=== PATIENT | male | born 1955 | race Caucasian/White ===

== ENCOUNTER → 2016-04-11 | Outpatient (CLI) | payer BC, OTHER ==
--- NOTE | 2016-04-11 21:52 | PN ---
Galdino is doing very well. He is still very compliant with his CPAP therapy and is coming in for a compliancy check. His last evaluation was done here at the sleep center in October of 2013. The patient has lost further weight. He used to weigh 232 and currently he is down to 212. He is still on CPAP pressure of 10 cm of water. He is using a Simplus full-face mask. Note that the patient is also status post UPPP. He has no specific complaints. He is doing extremely well. He is looking for alternative masks, and I offered him the AirFit F10, which he is considering to use, as the level of comfort with this mask was much better compared to the Simplus mask. BP is 141/88, pulse 84, respiration 16, temperature 98.2, saturation 97% on room air. Weight is 218. Height is 5 feet 6 inches. GENERAL APPEARANCE: Calm, comfortable. HEENT: Post UPPP. There is no goiter or neck mass. LUNGS: Clear to auscultation. HEART: Sounds are regular rate and rhythm. Normal S1, S2. ABDOMEN: Soft, nontender. No organomegaly. EXTREMITIES: No edema. No cyanosis or clubbing. IMPRESSION: 1. Obstructive sleep apnea, still under successful therapy with a CPAP pressure of 10 cm of water. 2. Status post UPPP. 3. Moderate degree of periodic limb movements on Mirapex. 4. Hypertension. 5. Obesity with interval weight loss. The patient's BMI is down to 35. PLAN: 1. I offered this patient an AirFit F10 full-face mask. 2. Renew his CPAP supplies. 3. Encourage further weight loss and see me back in a year's time; follow up earlier if needed.
== END | disposition home or self-care (01) ==
LOC: SLEEP 13:28
PROVIDERS: ATTEND Internal Medicine Critical Care Medicine
DX: G47.33 Obstructive sleep apnea (adult) (pediatric) (principal); I10 Essential (primary) hypertension; E66.9 Obesity, unspecified; Z68.35 Body mass index [BMI] 35.0-35.9, adult; Z79.899 Other long term (current) drug therapy

== ENCOUNTER → 2017-01-15 | Outpatient (CLI) | payer BC, OTHER ==
--- NOTE | 2017-01-15 12:14 | US ---
EXAMINATION TYPE: US abdomen complete DATE OF EXAM: 01/15/2017 COMPARISON: NONE CLINICAL HISTORY: RUQ abd pain R10.11. pain and nausea in RUQ, h/o renal stones and splenomegaly EXAM MEASUREMENTS: Liver Length: 15.5 cm Gallbladder Wall: 0.2 cm CBD: 0.5 cm Spleen: 14.5 cm Right Kidney: 11.5 x 5.5 x 6.3 cm Left Kidney: 11.9 x 5.1 x 6.1 cm Large body habitus with overlying gas limits exam Pancreas: limited views due to gas Liver: wnl Gallbladder: fundal and neck fold seen, probable stones seen within fundal fold, no wall thickening, no gutter fluid Evidence for sonographic Galvan's sign: YES CBD: wnl Spleen: enlarged Right Kidney: wnl Left Kidney: 0.8cm inferior pole stone seen Upper IVC: wnl Abd Aorta: limited views due to gas *left message with office to call back @1150, patient waiting until I hear back IMPRESSION: 1. Gallstone. 2. Positive Galvan sign. Consider acute cholecystitis within the differential. Additional suggestive findings for acute cholecystitis however not sonographically apparent.. 3. Inferior pole left renal stone without obstruction
[2017-01-15 12:21] LABS: CH 28.9; CHCM 32.7; HCT 48.2 % (39.0-53.0); HDW 2.89; HGB 15.3 gm/dL (13.0-17.5); MCH 28.3 pg (25.0-35.0); MCHC 31.8 g/dL (31.0-37.0); MCV 88.9 fL (80.0-100.0); Mean Platelet Volume 6.7; RBC 5.42 m/uL (4.30-5.90); RDW 13.7 % (11.5-15.5); WBC 6.7 k/uL (3.8-10.6)
[2017-01-15 12:39] LABS: ALT 36 U/L (21-72); AST 22 U/L (17-59); Alkaline Phosphatase 58 U/L (38-126); Amylase 92 U/L (30-110); Anion Gap 10 mmol/L; Blood Urea Nitrogen 22 mg/dL (9-20); Calcium 9.6 mg/dL (8.4-10.2); Carbon Dioxide 23 mmol/L (22-30); Chloride 108 mmol/L (98-107); Glucose 99 mg/dL (74-99); Non-African American GFR(MDRD) 52 (>60 ml/min/1.73 sqM); Potassium 4.4 mmol/L (3.5-5.1); Sodium 141 mmol/L (137-145); Total Bilirubin 0.5 mg/dL (0.2-1.3); Total Protein 7.1 g/dL (6.3-8.2)
== END | disposition home or self-care (01) ==
LOC: RADUSWWP 11:02
PROVIDERS: ATTEND Family Medicine
DX: K80.20 Calculus of gallbladder without cholecystitis without obstruction (principal); N20.0 Calculus of kidney; I12.9 Hypertensive chronic kidney disease with stage 1 through stage 4 chronic kidney disease, or unspecified chronic kidney disease; N18.3 Chronic kidney disease, stage 3 (moderate); E03.9 Hypothyroidism, unspecified
CPT/HCPCS: 36415; 76700; 80053; 82150; 83690; 84439; 84443; 85027

== ENCOUNTER 2017-05-01 06:37 | Day surgery (SDC) | payer BC, OTHER ==
[2017-04-26 18:01] VITALS: BMI 33.0
[~2017-05-01 06:37] MED LIST: DEXAMETHASONE SOD PHOSPHATE 10 MG/ML 1 ML VIAL IV ONE; LACTATED RINGERS 1,000 ML IV SCH; LIDOCAINE 1% 20 ML VIAL (10MG/ML) FOR IV START INTRADERMA PRN; MIDAZOLAM 2 MG/2 ML VIAL IV PRN; MORPHINE SULFATE 4 MG/ML SYRINGE IVP PRN; ONDANSETRON 4 MG/2 ML VIAL IVP ONE; Pre Op ABX Message 1 EACH MISC MISCELLANE ONE; SCOPOLAMINE 1.5MG/72HR PATCH TRANSDERM ONE
[2017-05-01] MEDS ORDERED: ONDANSETRON 4 MG/2 ML VIAL ONE (07:29)
[2017-05-01] MEDS ORDERED: ceFAZolin 1,000 MG in DEXTROSE/WATER 1 50ML.BAG IVPB STA (07:52)
[2017-05-01] MEDS ORDERED: LIDOCAINE 1% INJ 10MG/ML (20 ML MDV) ONE (07:59)
[2017-05-01] MEDS ORDERED: GLYCOPYRROLATE 0.2 MG/ML 2 ML VIAL ONE (07:59)
[2017-05-01] MEDS ORDERED: LIDOCAINE 2% INJ 20 MG/ML (20 ML MDV) ONE (07:59)
[2017-05-01] MEDS ORDERED: PHENYLEPHRINE-0.9% NACL SYG 1 MG/10 ML SYRINGE ONE (07:59)
[2017-05-01] MEDS ORDERED: NEOSTIGMINE 1 MG/ML 10 ML VIAL ONE (07:59)
[2017-05-01] MEDS ORDERED: PROPOFOL 10 MG/ML 20 ML VIAL IV ONE (07:59)
[2017-05-01] MEDS ORDERED: ROCURONIUM BROMIDE 10 MG/ML 10 ML VIAL IV ONE (07:59)
[2017-05-01] MEDS ORDERED: MIDAZOLAM 2 MG/2 ML VIAL ONE (07:59)
[2017-05-01] MEDS ORDERED: ROPIVACAINE 5 MG/ML 30 ML VIAL ONE (07:59)
[2017-05-01] MEDS ORDERED: SUCCINYLCHOLINE CHLORIDE 100 MG/5 ML SYR IV ONE (07:59)
[2017-05-01] MEDS ORDERED: LACTATED RINGERS 1,000 ML IV ONE ×2 (07:59→09:16)
[2017-05-01] MEDS ORDERED: ePHEDrine SULFATE/0.9% NACL/PF 50 MG/5 ML SYRINGE IV ONE (07:59)
--- NOTE | 2017-05-01 08:24 | P.ONQ ---
Anesthesiology Proc Note - PNB - Peripheral Nerve Block Performed Right Interscalene Single Time Out Performed: Yes Procedure Start Time: 07:32 Procedure Stop Time: 07:44 Indication: Acute Post-Operative Pain, Requested by physician Sedation Type: Sedate with meaningful contact maintained Preparation: Sterile Prep Position: Supine Catheter: None Needle Types: Facet Needle Size: 50mm (2") Needle Gauge: 20 Technique: Ultrasound Injectate: 0.5% Ropivacaine (see comment for volume) (15 mls Ropi 0.5% + 15 mls Lidocaine 2%) Adjunct: Epinephrine (see comment for dilution ratio) Blood Aspirated: No Pain Paresthesia on Injection Noted: No Resistance on Injection: Normal Events: Uneventful and Well Tolerated
[2017-05-01] MEDS ORDERED: ceFAZolin 1,000 MG in SODIUM CHLORIDE 0.9% 1,000 ML IRRIGATION ONE (08:32)
[2017-05-01] MEDS ORDERED: MORPHINE SULFATE 4 MG/ML SYRINGE IVP PRN ×3 (09:40)
[2017-05-01] MEDS ORDERED: hydrOXYzine PAMOATE 25 MG CAP PO PRN (09:40)
[2017-05-01] MEDS ORDERED: SENNOSIDES-DOCUSATE SODIUM 1 EACH TAB PO PRN (09:40)
[2017-05-01] MEDS ORDERED: ONDANSETRON 4 MG/2 ML VIAL IVP PRN (09:40)
[2017-05-01] MEDS ORDERED: HYDROcodone/APAP 5-325MG 1 EACH TAB PO PRN (09:40)
[2017-05-01] MEDS ORDERED: TEMAZEPAM 15 MG CAP PO PRN (09:40)
[2017-05-01] MEDS: ceFAZolin IN SWFI 2 GM/20 ML SYRINGE IVP SCH ×2 (17:35→23:35)
[2017-05-01] MEDS: LACTATED RINGERS 1,000 ML IV SCH ×2 (17:35→23:35)
[2017-05-01] MEDS: HYDROcodone/APAP 5-325MG 1 EACH TAB PO PRN (18:36)
[2017-05-01] MEDS: DOXAZOSIN 2 MG TAB PO SCH (19:44)
[2017-05-01] MEDS: TOPIRAMATE 25 MG TAB PO SCH (19:45)
[2017-05-01] MEDS ORDERED: CYCLOBENZAPRINE 10 MG TAB PO SCH (21:00)
[2017-05-01] MEDS ORDERED: PRIMIDONE 50 MG TAB PO SCH (21:00)
[2017-05-01] MEDS ORDERED: PANTOPRAZOLE 40 MG TABLET PO SCH (21:00)
[2017-05-01] MEDS ORDERED: MIRTAZAPINE 15 MG TAB PO SCH (21:00)
[2017-05-01] MEDS ORDERED: SERTRALINE 100 MG TAB PO SCH (21:00)
--- NOTE | 2017-05-01 23:36 | CONS ---
CONSULTATION DATE OF CONSULTATION: 05/01/2017 REASON FOR CONSULTATION: Medical management requested by Dr. Toledo. CONSULTATION: This is a pleasant 61-year-old patient of Dr. May who has undergone right shoulder surgery. Right shoulder is in a support. Pain is controlled. No nausea, vomiting. Chronic stable medical conditions include asthma, GERD, hypertension, restless leg syndrome. The patient did tolerate his supper. No chest pain or short of breath. REVIEW OF SYSTEMS: CONSTITUTIONAL: None. HEENT: None. RESPIRATORY: None. CARDIOVASCULAR: None. GASTROINTESTINAL: Heartburn. GENITOURINARY: None. MUSCULOSKELETAL: The patient had pain prior to operation on the right shoulder. DERMATOLOGICAL: None. HEMATOLOGIC: None. LYMPHATIC: None. PSYCHIATRY: None. NEUROLOGICAL: Restless legs syndrome. PAST MEDICAL HISTORY: Asthma, GERD, hypertension, obstructive sleep apnea, does not use CPAP anymore after losing weight, restless leg syndrome. PAST SURGICAL HISTORY: Back surgery, cholecystectomy, hernia repair, right hand foreign body removed, nerve decompression of the right face, spinal fusion x3, cholecystectomy, hernia repair. SOCIAL HISTORY: Does not smoke or drink alcohol, . FAMILY HISTORY: Reviewed with patient. History of cancer, type unknown. HOME MEDICATIONS: 1. Topamax ER 50 mg q.h.s. 2. Zoloft 400 mg q.h.s. 3. Mysoline 50 mg q.h.s. 4. Protonix 20 mg q.h.s. 5. Remeron 50 mg p.o. q.h.s. 6. Synthroid 75 mcg p.o. daily. 7. Cardura XL 4 mg q.h.s. 8. Cyclobenzaprine 10 mg q.h.s. 9. Fioricet 1-2 tablets every 6 hours p.r.n. 10.Senokot-S 2 tablets p.o. daily. 11.[place] 5, 1-2 tablets q.4 p.r.n. ALLERGIES: To MEPERIDINE and SILVADENE. PHYSICAL EXAMINATION: Temperature 98.2 pulse 95, respirations 18, blood pressure 159/104, pulse ox 95% on room air. GENERAL APPEARANCE: Well built, BMI 33.1, sitting up, comfortable. EYES: Pupils equal. Conjunctivae normal. HEENT: External nose and ears normal. Oral cavity normal. NECK: JVD not raised. Mass not palpable. RESPIRATORY: Effort normal. Lungs are clear. CARDIOVASCULAR: First and second sounds normal. No edema. ABDOMEN: Soft nontender. Liver, spleen not palpable. LYMPHATIC: No lymph node palpable in neck or axillae. PSYCHIATRY: Alert and oriented x3. Mood and affect normal. EXTREMITIES: Right arm in a support. The patient has good sensation in the fingers. INVESTIGATIONS: No blood work from today. ASSESSMENT: 1. Right shoulder rotator cuff repair with acromioplasty and excision of distal clavicle. 2. Intermittent asthma, controlled. 3. Gastroesophageal reflux disease. 4. Essential hypertension. 5. Restless legs syndrome. 6. Hypothyroidism. 7. Depression not otherwise specified, controlled. PLAN: Home medications resumed. The patient has Venodyne boots for DVT prophylaxis. Pain is well-controlled. The patient when discharged should follow up with Dr. May. Thank you, Dr. Toledo. MMARLINE / THADDEUS: [id number] /
[2017-05-02] MEDS: HYDROcodone/APAP 5-325MG 1 EACH TAB PO PRN ×2 (02:16→11:19)
[2017-05-02] MEDS ORDERED: LEVOTHYROXINE 75 MCG TAB PO SCH (06:30)
[2017-05-02 07:34] VITALS: BP 157/86; PULSE 73; RESP 16; TEMP 98.5
--- NOTE | 2017-05-02 08:39 | P.DS ---
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 The patient presented to the orthopedic office for evaluation. After discussion and consideration patient elects to proceed with a rotator cuff repair. The patient is seen preoperatively by his primary care physician and cleared for surgery. Patient is admitted to observation at [facility] on 05/01/2017 for right shoulder rotator cuff repair with distal clavicle excision and acromioplasty. The procedures performed without complication or sequelae. The patient is doing well postoperatively. Labs and vital signs are stable on day of discharge. On day of discharge patient's shoulder incision is healing well. There is minimal erythema. There is no drainage noted at this time. There is minimal soft tissue swelling to the right upper extremity. Patient has full hand, wrist , and elbow motion without difficulty or pain. Neurovascular status to the right upper extremity is intact. Patient is discharged to home in good condition. Patient Condition at Discharge: Stable Plan - Discharge Summary Discharge Rx Participant: Yes New Discharge Prescriptions: New Cephalexin [Keflex] 500 mg PO Q8HR #15 cap HYDROcodone/APAP 5-325MG [[place] 5] 1 - 2 each PO Q4-6H PRN #60 tab PRN Reason: Pain Sennosides-Docusate Sodium [Senokot-S] 2 tab PO DAILY #30 tablet No Action Topiramate [Topiramate ER] 50 mg PO HS Doxazosin Mesylate [Cardura Xl] 4 mg PO HS Sertraline HCl [Zoloft] 200 mg PO HS Pantoprazole Sodium 20 mg PO HS Butalb/APAP/Caff 50-325-40Mg [Fioricet 50-325-40] 1 - 2 tab PO Q6H PRN PRN Reason: Migraine Headache Cyclobenzaprine HCl 10 mg PO HS Levothyroxine Sodium [Synthroid] 75 mcg PO DAILY Mirtazapine [Remeron] 15 mg PO HS Primidone [Mysoline] 50 mg PO HS Discharge Medication List Doxazosin Mesylate [Cardura Xl] 4 mg PO HS 03/29/15 [History] Pantoprazole Sodium 20 mg PO HS 03/29/15 [History] Sertraline HCl [Zoloft] 200 mg PO HS 03/29/15 [History] Topiramate [Topiramate ER] 50 mg PO HS 03/29/15 [History] Butalb/APAP/Caff 50-325-40Mg [Fioricet 50-325-40] 1 - 2 tab PO Q6H PRN 04/26/17 [History] Cyclobenzaprine HCl 10 mg PO HS 04/26/17 [History] Levothyroxine Sodium [Synthroid] 75 mcg PO DAILY 04/26/17 [History] Mirtazapine [Remeron] 15 mg PO HS 04/26/17 [History] Primidone [Mysoline] 50 mg PO HS 04/26/17 [History] Cephalexin [Keflex] 500 mg PO Q8HR #15 cap 05/01/17 [Rx] HYDROcodone/APAP 5-325MG [[place] 5] 1 - 2 each PO Q4-6H PRN #60 tab 05/01/17 [Rx] Sennosides-Docusate Sodium [Senokot-S] 2 tab PO DAILY #30 tablet 05/01/17 [Rx] Follow up Appointment(s)/Referral(s): Ilya Toledo DO [Doctor of Osteopathic Medicine] - 2 Weeks Activity/Diet/Wound Care/Special Instructions: Keep incision clean and dry Change dressing daily May shower in 3 days if no drainage from incision Keep arm sling/abductor pillow in place except when bathing Follow up with Dr. Toledo in 2 weeks. Call [facility] with any questions or concerns. [phone] Discharge Disposition: HOME SELF-CARE
[2017-05-02] MEDS: TOPIRAMATE 25 MG TAB PO SCH (08:46)
[2017-05-02] MEDS: DOXAZOSIN 2 MG TAB PO SCH (08:46)
--- NOTE | 2017-05-02 22:38 | PN ---
PROGRESS NOTE DATE OF SERVICE: 05/02/2017. PRESENTING COMPLAINT: Shoulder surgery. INTERVAL HISTORY: Patient is status post right shoulder surgery. Pain is better controlled. Sitting up. Did tolerate his breakfast. No nausea or vomiting. Up to the bathroom. is present. REVIEW OF SYSTEMS: Done for constitutional, cardiovascular, GI, pulmonary, musculoskeletal; relevant findings as above. CURRENT MEDICATIONS: Reviewed. EXAMINATION: VITAL SIGNS: Temperature 98.5, pulse 93, respirations 16, blood pressure 157/86 pulse ox 97% on room air. GENERAL APPEARANCE: Sitting up, comfortable. EYES: Pupils are equal. Conjunctivae normal. HEENT: External appearance of ears and nose normal. Oral cavity normal. NECK: JVD not raised. Mass not palpable. Respiratory effort normal. LUNGS: Clear. CARDIOVASCULAR: 1st and 2nd sounds normal. No edema. ABDOMEN: Soft, nontender. Liver and spleen not palpable. PSYCHIATRY: Alert and oriented. Mood normal. Right arm in support. Fingers have good sensation. ASSESSMENT: 1. Right shoulder rotator cuff repair with acromioplasty and excision of distal clavicle. 2. Intermittent asthma, controlled. 3. Gastroesophageal reflux disease. 4. Essential hypertension. 5. Restless legs syndrome. 6. Hypothyroidism. 7. Depression, not otherwise specified. PLAN: Patient doing well. Continue current medication and treatment plan. MMODL / IJN: [id number] /
--- NOTE | 2017-05-03 11:24 | OP ---
OPERATIVE REPORT DATE OF PROCEDURE: 05/01/2017. SURGEON: Ilya Toledo DO. PROPERTY FIELD ADJUSTER: VERN Ruiz. PREOPERATIVE DIAGNOSIS: Torn right rotator cuff. POSTOPERATIVE DIAGNOSIS: Torn right rotator cuff. PROCEDURE PERFORMED: Resection of distal right clavicle, decompression acromioplasty, and rotator cuff repair utilizing Arthrex bioabsorbable suture and anchor. DESCRIPTION OF PROCEDURE: The patient was taken taken to the operative suite and placed in supine position. Regional block anesthesia was performed by the department of anesthesiology and Patient was placed in beach chair position, appropriately being padded and secured. Betadine prep was carried out over the right shoulder. Sterile drapes were applied in the usual manner. A minimally invasive anterior lateral incision was developed over the acromion. Sharp dissection through subcutaneous tissue was performed. The superior acromioclavicular ligament was identified and dissected. The distal 1 cm of the clavicle was excised with a bone saw. The anterior deltoid was then released along the anterior lateral border. The coracoacromial ligament was elevated. A anterior lateral decompression acromioplasty was performed. The acromion was shaped with a bone saw and bone rasp. Direct visualization and inspection revealed a complete full thickness tear at the supraspinatus area of the right shoulder. There was mild retraction present at this time. The tuberosity was prepared using rongeur and bone awl and tap a 5.5 bioabsorbable anchor was then . Following that securement in bone, the repair was then carried out for the rotator cuff. Irrigation was performed. The deltoid was then reapproximated back in to the acromion with #1 Ethibond suture. The deep fascia was approximated with #1 Vicryl interrupted fashion. The skin was approximated with 3-0 Quill suture in subcuticular fashion. The incision was sealed with Dermabond. A sterile dressing was applied and patient placed in pillow splint and transferred to recovery room in satisfactory postop condition. GROSS PATHOLOGY: A complete tear of the supraspinatus tendon. MMODL / IJN: [id number] /
== END 2017-05-02 11:55 | disposition home or self-care (01) ==
LOC: OR 06:37 → 3SUR 09:31 → OR 05-02 11:55
PROVIDERS: ATTEND Orthopaedic Surgery
DX: M75.121 Complete rotator cuff tear or rupture of right shoulder, not specified as traumatic (principal); M75.41 Impingement syndrome of right shoulder; M19.011 Primary osteoarthritis, right shoulder; J45.909 Unspecified asthma, uncomplicated; K21.9 Gastro-esophageal reflux disease without esophagitis; G25.81 Restless legs syndrome; E03.9 Hypothyroidism, unspecified; F32.9 Major depressive disorder, single episode, unspecified; I10 Essential (primary) hypertension; I73.9 Peripheral vascular disease, unspecified; G47.33 Obstructive sleep apnea (adult) (pediatric); G43.909 Migraine, unspecified, not intractable, without status migrainosus; M54.2 Cervicalgia; N40.0 Benign prostatic hyperplasia without lower urinary tract symptoms; E78.5 Hyperlipidemia, unspecified; Z98.1 Arthrodesis status; N28.9 Disorder of kidney and ureter, unspecified; E66.9 Obesity, unspecified; Z68.33 Body mass index [BMI] 33.0-33.9, adult; Z86.718 Personal history of other venous thrombosis and embolism; Z79.890 Hormone replacement therapy; Z79.891 Long term (current) use of opiate analgesic; Z79.899 Other long term (current) drug therapy; Z79.51 Long term (current) use of inhaled steroids; Z88.5 Allergy status to narcotic agent; Z88.1 Allergy status to other antibiotic agents
CPT/HCPCS: 64415

== ENCOUNTER 2018-01-26 20:44 | Emergency (ER) | payer BC, OTHER ==
[2018-01-26] MEDS ORDERED: ONDANSETRON 4 MG/2 ML VIAL IVP STA (21:28)
[2018-01-26] MEDS ORDERED: SODIUM CHLORIDE 0.9% 1,000 ML IV STA (21:28)
--- NOTE | 2018-01-26 21:31 | ED ---
General Adult HPI - General Chief complaint: Nausea/Vomiting/Diarrhea Stated complaint: Vomiting Time Seen by Provider: 01/26/18 21:04 Source: patient, RN notes reviewed, old records reviewed Mode of arrival: ambulatory Limitations: no limitations - History of Present Illness Initial comments: 62-year-old male presenting for evaluation of nausea vomiting diarrhea. Patient has had 3 day history of nausea vomiting, states she's vomited nearly every hour over the past 12 hours. He is also had profound diarrhea which she describes as watery and dark. 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 He has been unable to tolerate anything orally. Patient also complains of generalized abdominal pain which is crampy in nature. No chest pain. No dyspnea. No fever or chills. Patient was prescribed metronidazole for C. difficile by his primary care physician. States this episode is similar to previous episodes of C. difficile diarrhea. - Related Data Home Medications Medication Instructions Recorded Confirmed Doxazosin Mesylate [Cardura Xl] 4 mg PO HS 03/29/15 05/01/17 Pantoprazole Sodium 20 mg PO HS 03/29/15 05/01/17 Sertraline HCl [Zoloft] 200 mg PO HS 03/29/15 05/01/17 Topiramate [Topiramate ER] 50 mg PO HS 03/29/15 05/01/17 Butalb/APAP/Caff 50-325-40Mg 1 - 2 tab PO Q6H PRN 04/26/17 05/01/17 [Fioricet 50-325-40] Cyclobenzaprine HCl 10 mg PO HS 04/26/17 05/01/17 Levothyroxine Sodium [Synthroid] 75 mcg PO DAILY 04/26/17 05/01/17 Mirtazapine [Remeron] 15 mg PO HS 04/26/17 05/01/17 Primidone [Mysoline] 50 mg PO HS 04/26/17 05/01/17 Previous Rx's Medication Instructions Recorded Cephalexin [Keflex] 500 mg PO Q8HR #15 cap 05/01/17 HYDROcodone/APAP 5-325MG [[place] 5] 1 - 2 each PO Q4-6H PRN #60 tab 05/01/17 Sennosides-Docusate Sodium 2 tab PO DAILY #30 tablet 05/01/17 [Senokot-S] Allergies Allergy/AdvReac Type Severity Reaction Status Date / Time meperidine HCl [From Demerol] Allergy Rash/Hives Verified 01/26/18 20:49 silver sulfadiazine Allergy Itching, Verified 01/26/18 20:49 [From Silvadene] KIM SKIN Review of Systems ROS Statement: Those systems with pertinent positive or pertinent negative responses have been documented in the HPI. ROS Other: All systems not noted in ROS Statement are negative. Past Medical History Past Medical History: Asthma, GERD/Reflux, GI Bleed, Hypertension, Musculoskeletal Disorder, Pulmonary Embolus (PE), Sleep Apnea/CPAP/BIPAP, Thyroid Disorder Additional Past Medical History / Comment(s): RT SHOULDER INJURY. RLS. NO LONGER USING CPAP SINCE WGT LOSS 01/2017. DR WHEELER HAS REFERRED PATIENT TO SEE CARDIAC DR 04/27/17 FOR PRE-OP CLEARANCE, PER . History of Any Multi-Drug Resistant Organisms: C-DIFF Date of last positivie culture/infection: 04/2016 MDRO Source:: STOOL Past Surgical History: Back Surgery, Cholecystectomy, Hernia Repair, Orthopedic Surgery Additional Past Surgical History / Comment(s): Sinus. UPPP. RT HAND FB REMOVAL. Nerve decompression RT WAIST. SPINAL FUSION X3. GB REMOVAL, HERNIA REPAIR 01/2017. Past Anesthesia/Blood Transfusion Reactions: Previous Problems w/ Anesthesia, Motion Sickness, Postoperative Nausea & Vomiting (PONV) Additional Past Anesthesia/Blood Transfusion Reaction / Comment(s): AWAKES W/ BEING UNABLE TO BREATHE; DRY HEAVES SEVERE, NO RX HELPED. Past Psychological History: No Psychological Hx Reported Smoking Status: Never smoker Past Alcohol Use History: None Reported Past Drug Use History: None Reported - Past Family History Sister(s) Family Medical History: Cancer General Exam Limitations: no limitations General appearance: alert, in no apparent distress Head exam: Present: atraumatic, normocephalic Eye exam: Present: normal appearance, PERRL ENT exam: Present: mucous membranes dry Neck exam: Present: normal inspection. Absent: tenderness, meningismus Respiratory exam: Present: normal lung sounds bilaterally. Absent: respiratory distress, wheezes Cardiovascular Exam: Present: regular rate, normal rhythm GI/Abdominal exam: Present: soft, distended. Absent: tenderness, guarding, rebound Extremities exam: Present: normal inspection, normal capillary refill. Absent: pedal edema Neurological exam: Present: alert, oriented X3, CN II-XII intact. Absent: motor sensory deficit Psychiatric exam: Present: normal affect, normal mood Skin exam: Present: warm, dry, intact. Absent: cyanosis, diaphoretic Course Vital Signs 01/26/18 01/26/18 20:45 22:29 Temperature 98.4 F Pulse Rate 80 73 Respiratory 20 18 Rate Blood Pressure 173/104 139/94 O2 Sat by Pulse 99 96 Oximetry Medical Decision Making - Medical Decision Making 62-year-old male history of C. diff presenting with nausea vomiting and diarrhea. Symptoms have been present for the past 3 days. He was started on metronidazole by his primary care physician. On exam patient is well-appearing with stable vitals. No episodes of vomiting or diarrhea while in the emergency department. Patient has normal CBC no leukocytosis, stable hemoglobin, normal electrolytes. Patient does have 1+ ketones in the urine consistent with some dehydration. He is given IV hydration and Zofran. X-rays obtained which is overall negative, no obstruction. On reevaluation, patient is feeling better, no vomiting. Nausea improved. Patient states he does have Zofran at home. - Lab Data Result diagrams: 01/26/18 21:50 01/26/18 21:50 Lab Results 01/26/18 01/26/18 01/26/18 Range/Units 21:50 21:50 21:50 WBC 8.1 (3.8-10.6) k/uL RBC 5.91 H (4.30-5.90) m/uL Hgb 16.9 (13.0-17.5) gm/dL Hct 52.9 (39.0-53.0) % MCV 89.5 (80.0-100.0) fL MCH 28.6 (25.0-35.0) pg MCHC 32.0 (31.0-37.0) g/dL RDW 13.5 (11.5-15.5) % Plt Count 315 (150-450) k/uL Neutrophils % 77 % Lymphocytes % 17 % Monocytes % 4 % Eosinophils % 1 % Basophils % 0 % Neutrophils # 6.2 (1.3-7.7) k/uL Lymphocytes # 1.4 (1.0-4.8) k/uL Monocytes # 0.3 (0-1.0) k/uL Eosinophils # 0.1 (0-0.7) k/uL Basophils # 0.0 (0-0.2) k/uL PT (9.0-12.0) sec INR (<1.2) APTT (22.0-30.0) sec Sodium 142 (137-145) mmol/L Potassium 4.4 (3.5-5.1) mmol/L Chloride 106 (98-107) mmol/L Carbon Dioxide 25 (22-30) mmol/L Anion Gap 11 mmol/L BUN 14 (9-20) mg/dL Creatinine 1.04 (0.66-1.25) mg/dL Est GFR (CKD-EPI)AfAm 89 (>60 ml/min/1.73 sqM) Est GFR (CKD-EPI)NonAf 77 (>60 ml/min/1.73 sqM) Glucose 109 H (74-99) mg/dL Plasma Lactic Acid Torres (0.7-2.0) mmol/L Calcium 10.1 (8.4-10.2) mg/dL Total Bilirubin 0.7 (0.2-1.3) mg/dL AST 20 (17-59) U/L ALT 25 (21-72) U/L Alkaline Phosphatase 70 (38-126) U/L Total Protein 7.9 (6.3-8.2) g/dL Albumin 4.8 (3.5-5.0) g/dL Amylase 81 (30-110) U/L Lipase 98 (23-300) U/L Urine Color Yellow Urine Appearance Clear (Clear) Urine pH 5.5 (5.0-8.0) Ur Specific [place] 1.023 (1.001-1.035) Urine Protein Trace H (Negative) Urine Glucose (UA) Negative (Negative) Urine Ketones 1+ H (Negative) Urine Blood Trace H (Negative) Urine Nitrite Negative (Negative) Urine Bilirubin Negative (Negative) Urine Urobilinogen 2.0 (<2.0) mg/dL Ur Leukocyte Esterase Negative (Negative) Urine RBC 3 (0-5) /hpf Urine WBC 3 (0-5) /hpf Ur Squamous Epith Cells <1 (0-4) /hpf Urine Mucus Moderate H (None) /hpf 01/26/18 01/26/18 Range/Units 21:50 21:50 WBC (3.8-10.6) k/uL RBC (4.30-5.90) m/uL Hgb (13.0-17.5) gm/dL Hct (39.0-53.0) % MCV (80.0-100.0) fL MCH (25.0-35.0) pg MCHC (31.0-37.0) g/dL RDW (11.5-15.5) % Plt Count (150-450) k/uL Neutrophils % % Lymphocytes % % Monocytes % % Eosinophils % % Basophils % % Neutrophils # (1.3-7.7) k/uL Lymphocytes # (1.0-4.8) k/uL Monocytes # (0-1.0) k/uL Eosinophils # (0-0.7) k/uL Basophils # (0-0.2) k/uL PT 11.0 (9.0-12.0) sec INR 1.0 (<1.2) APTT 25.0 (22.0-30.0) sec Sodium (137-145) mmol/L Potassium (3.5-5.1) mmol/L Chloride (98-107) mmol/L Carbon Dioxide (22-30) mmol/L Anion Gap mmol/L BUN (9-20) mg/dL Creatinine (0.66-1.25) mg/dL Est GFR (CKD-EPI)AfAm (>60 ml/min/1.73 sqM) Est GFR (CKD-EPI)NonAf (>60 ml/min/1.73 sqM) Glucose (74-99) mg/dL Plasma Lactic Acid Torres 1.1 (0.7-2.0) mmol/L Calcium (8.4-10.2) mg/dL Total Bilirubin (0.2-1.3) mg/dL AST (17-59) U/L ALT (21-72) U/L Alkaline Phosphatase (38-126) U/L Total Protein (6.3-8.2) g/dL Albumin (3.5-5.0) g/dL Amylase (30-110) U/L Lipase (23-300) U/L Urine Color Urine Appearance (Clear) Urine pH (5.0-8.0) Ur Specific [place] (1.001-1.035) Urine Protein (Negative) Urine Glucose (UA) (Negative) Urine Ketones (Negative) Urine Blood (Negative) Urine Nitrite (Negative) Urine Bilirubin (Negative) Urine Urobilinogen (<2.0) mg/dL Ur Leukocyte Esterase (Negative) Urine RBC (0-5) /hpf Urine WBC (0-5) /hpf Ur Squamous Epith Cells (0-4) /hpf Urine Mucus (None) /hpf Disposition Clinical Impression: Dehydration, Nausea vomiting and diarrhea Disposition: HOME SELF-CARE Condition: Good Instructions: Acute Nausea and Vomiting (ED), Acute Diarrhea (ED) Is patient prescribed a controlled substance at d/c from ED?: No Referrals: Davy Wheeler DO [Primary Care Provider] - 1-2 days Time of Disposition: 22:56
--- NOTE | 2018-01-26 22:05 | XR ---
EXAMINATION TYPE: XR KUB DATE OF EXAM: 01/26/2018 COMPARISON: 03/29/2015 HISTORY: Vomiting TECHNIQUE: 2 views upright FINDINGS: There is no sign of intestinal obstruction or pneumoperitoneum. Fecal pattern is normal. Th ere is 7 mm calcification in the lower pole left kidney. There is additional smaller calculus. IMPRESSION: Left renal calculi. Nonacute abdomen. No change.
[2018-01-26 22:08] LABS: MCH 28.6 pg (25.0-35.0); MCV 89.5 fL (80.0-100.0)
[2018-01-26 22:09] LABS: Appearance,Urine Clear (Clear); Bilirubin,Urine Negative (Negative); Blood,Urine Trace (Negative); Color,Urine Yellow; Glucose,Urine (UA) Negative (Negative); Ketones,Urine 1+ (Negative); Leukocyte Esterase,Urine Negative (Negative); Mucus,Urine Moderate /hpf; Nitrite,Urine Negative (Negative); PH, Urine 5.5 (5.0-8.0); Protein,Urine Trace (Negative); RBC,Urine 3 /hpf (0-5); Specific Gravity,Urine 1.023 (1.001-1.035); Squamous Epithelial Cell,Urine <1 /hpf (0-4); WBC,Urine 3 /hpf (0-5)
[2018-01-26 22:24] LABS: Basophils % (A) 0 %; Eosinophils # (A) 0.1 k/uL (0-0.7); Eosinophils % (A) 1 %; HCT 52.9 % (39.0-53.0); HGB 16.9 gm/dL (13.0-17.5); Lymphocytes # (A) 1.4 k/uL (1.0-4.8); Lymphocytes % (A) 17 %; Mean Platelet Volume 6.8; Monocytes # (A) 0.3 k/uL (0-1.0); Monocytes % (A) 4 %; Neutrophils # (A) 6.2 k/uL (1.3-7.7); Neutrophils % (A) 77 %; Platelet Count 315 k/uL (150-450); RBC 5.91 m/uL (4.30-5.90); RDW 13.5 % (11.5-15.5); WBC 8.1 k/uL (3.8-10.6)
[2018-01-26 22:28] LABS: Albumin 4.8 g/dL (3.5-5.0); Calcium 10.1 mg/dL (8.4-10.2); Potassium 4.4 mmol/L (3.5-5.1); Total Bilirubin 0.7 mg/dL (0.2-1.3); Total Protein 7.9 g/dL (6.3-8.2)
[2018-01-26] MEDS ORDERED: SODIUM CHLORIDE 0.9% 500 ML 500 ML IV ONE (22:30)
[2018-01-27 00:15] VITALS: BP 153/93; PULSE 79; RESP 16; TEMP 98
== END 2018-01-27 00:15 | disposition home or self-care (01) ==
LOC: EC 20:44
DX: E86.0 Dehydration (principal); R11.2 Nausea with vomiting, unspecified; R19.7 Diarrhea, unspecified; J45.909 Unspecified asthma, uncomplicated; K21.9 Gastro-esophageal reflux disease without esophagitis; I10 Essential (primary) hypertension; G47.30 Sleep apnea, unspecified; Z79.899 Other long term (current) drug therapy; Z86.711 Personal history of pulmonary embolism; Z90.49 Acquired absence of other specified parts of digestive tract
CPT/HCPCS: 36415; 80053; 82150; 83605; 83690; 85025; 85610; 85730; 81001; 74018; 99284; 96374; 96361 ×2; J2405

== ENCOUNTER 2018-01-27 18:30 | Observation (INO) | payer BC, OTHER ==
[2018-01-27] MEDS ORDERED: ONDANSETRON 4 MG/2 ML VIAL IVP STA (18:54)
[2018-01-27] MEDS ORDERED: SODIUM CHLORIDE 0.9% 1,000 ML IV STA (18:54)
--- NOTE | 2018-01-27 18:56 | ED ---
Nausea/Vomiting/Diarrhea HPI - General Chief complaint: Nausea/Vomiting/Diarrhea Stated complaint: Vomiting Time Seen by Provider: 01/27/18 18:53 Source: patient, RN notes reviewed, old records reviewed Mode of arrival: ambulatory Limitations: no limitations - History of Present Illness Initial comments: This is a 62-year-old male the ER for evaluation. This patient presents today for evaluation regards to nausea vomiting diarrhea back pain. Patient states he has a history of C. diff, patient was in the hospital last night for similar complaints. Feel better prior to discharge place have persistent pain throughout the day tonight. Pain with nausea vomiting and now mild abdominal pain. No fevers. No recent travel history no sick contacts. No blood MD complaint: nausea, vomiting, diarrhea, abdominal pain -: days(s) (3) Description of Vomiting: food contents, watery, bilious Description of Diarrhea: other (None noted) Associated Abdominal Pain: Yes Location: epigastric Radiation: none Severity: severe (Vomiting and pain) Severity scale (1-10): 10 Quality: aching Consistency: constant Improves with: none Worsens with: vomiting, movement Associated Symptoms: myalgias, nausea/vomiting, weakness - Related Data Home Medications Medication Instructions Recorded Confirmed Doxazosin Mesylate [Cardura Xl] 4 mg PO HS 03/29/15 05/01/17 Pantoprazole Sodium 20 mg PO HS 03/29/15 05/01/17 Sertraline HCl [Zoloft] 200 mg PO HS 03/29/15 05/01/17 Topiramate [Topiramate ER] 50 mg PO HS 03/29/15 05/01/17 Butalb/APAP/Caff 50-325-40Mg 1 - 2 tab PO Q6H PRN 04/26/17 05/01/17 [Fioricet 50-325-40] Cyclobenzaprine HCl 10 mg PO HS 04/26/17 05/01/17 Levothyroxine Sodium [Synthroid] 75 mcg PO DAILY 04/26/17 05/01/17 Mirtazapine [Remeron] 15 mg PO HS 04/26/17 05/01/17 Primidone [Mysoline] 50 mg PO HS 04/26/17 05/01/17 Previous Rx's Medication Instructions Recorded Cephalexin [Keflex] 500 mg PO Q8HR #15 cap 05/01/17 HYDROcodone/APAP 5-325MG [[place] 5] 1 - 2 each PO Q4-6H PRN #60 tab 05/01/17 Sennosides-Docusate Sodium 2 tab PO DAILY #30 tablet 05/01/17 [Senokot-S] Allergies Allergy/AdvReac Type Severity Reaction Status Date / Time meperidine HCl [From Demerol] Allergy Rash/Hives Verified 01/27/18 18:49 silver sulfadiazine Allergy Itching, Verified 01/27/18 18:49 [From Silvadene] KIM SKIN Review of Systems ROS Statement: Those systems with pertinent positive or pertinent negative responses have been documented in the HPI. ROS Other: All systems not noted in ROS Statement are negative. Past Medical History Past Medical History: Asthma, GERD/Reflux, GI Bleed, Hypertension, Musculoskeletal Disorder, Pulmonary Embolus (PE), Sleep Apnea/CPAP/BIPAP, Thyroid Disorder Additional Past Medical History / Comment(s): RT SHOULDER INJURY. RLS. NO LONGER USING CPAP SINCE WGT LOSS 01/2017. DR WHEELER HAS REFERRED PATIENT TO SEE CARDIAC DR 04/27/17 FOR PRE-OP CLEARANCE, PER . History of Any Multi-Drug Resistant Organisms: C-DIFF Date of last positivie culture/infection: 01/2018 MDRO Source:: STOOL Past Surgical History: Back Surgery, Cholecystectomy, Hernia Repair, Orthopedic Surgery Additional Past Surgical History / Comment(s): Sinus. UPPP. RT HAND FB REMOVAL. Nerve decompression RT WAIST. SPINAL FUSION X3. GB REMOVAL, HERNIA REPAIR 01/2017. Past Anesthesia/Blood Transfusion Reactions: Previous Problems w/ Anesthesia, Motion Sickness, Postoperative Nausea & Vomiting (PONV) Additional Past Anesthesia/Blood Transfusion Reaction / Comment(s): AWAKES W/ BEING UNABLE TO BREATHE; DRY HEAVES SEVERE, NO RX HELPED. Past Psychological History: No Psychological Hx Reported Smoking Status: Never smoker Past Alcohol Use History: None Reported Past Drug Use History: None Reported - Past Family History Sister(s) Family Medical History: Cancer General Exam Limitations: no limitations General appearance: alert, in no apparent distress, anxious Head exam: Present: atraumatic, normocephalic, normal inspection Eye exam: Present: normal appearance, PERRL, EOMI. Absent: scleral icterus, conjunctival injection, periorbital swelling ENT exam: Present: normal exam, mucous membranes moist Neck exam: Present: normal inspection. Absent: tenderness, meningismus, lymphadenopathy Respiratory exam: Present: normal lung sounds bilaterally. Absent: respiratory distress, wheezes, rales, rhonchi, stridor Cardiovascular Exam: Present: regular rate, normal rhythm, normal heart sounds. Absent: systolic murmur, diastolic murmur, rubs, gallop, clicks GI/Abdominal exam: Present: soft, normal bowel sounds. Absent: distended, tenderness, guarding, rebound, rigid Extremities exam: Present: normal inspection, full ROM, normal capillary refill. Absent: tenderness, pedal edema, joint swelling, calf tenderness Back exam: Present: normal inspection Neurological exam: Present: alert, oriented X3, CN II-XII intact Psychiatric exam: Present: normal affect, normal mood Skin exam: Present: warm, dry, intact, normal color. Absent: rash Course Vital Signs 01/27/18 01/27/18 01/27/18 18:32 19:25 21:50 Temperature 98.3 F Pulse Rate 65 60 68 Respiratory 18 16 16 Rate Blood Pressure 171/106 161/93 153/95 O2 Sat by Pulse 100 98 95 Oximetry - Reevaluation(s) Reevaluation #1: 01/27/18 22:46 Medical record and ER visit from yesterday is reviewed Reevaluation #2: 01/27/18 22:47 Patient feeling better with multiple doses of pain medication and nausea medication Medical Decision Making - Medical Decision Making 60 female the ER with persistent nausea vomiting intractable nausea vomiting with feel outpatient treatment. Patient be admitted for IV hydration and continue management pain and vomiting - Lab Data Result diagrams: 01/27/18 19:20 01/27/18 19:20 Lab Results 01/27/18 01/27/18 01/27/18 Range/Units 19:20 19:20 19:20 WBC 7.1 (3.8-10.6) k/uL RBC 5.87 (4.30-5.90) m/uL Hgb 16.9 (13.0-17.5) gm/dL Hct 51.3 (39.0-53.0) % MCV 87.5 (80.0-100.0) fL MCH 28.8 (25.0-35.0) pg MCHC 32.9 (31.0-37.0) g/dL RDW 13.5 (11.5-15.5) % Plt Count 295 (150-450) k/uL Neutrophils % 72 % Lymphocytes % 20 % Monocytes % 5 % Eosinophils % 2 % Basophils % 0 % Neutrophils # 5.1 (1.3-7.7) k/uL Lymphocytes # 1.4 (1.0-4.8) k/uL Monocytes # 0.4 (0-1.0) k/uL Eosinophils # 0.1 (0-0.7) k/uL Basophils # 0.0 (0-0.2) k/uL Sodium 141 (137-145) mmol/L Potassium 4.7 (3.5-5.1) mmol/L Chloride 104 (98-107) mmol/L Carbon Dioxide 26 (22-30) mmol/L Anion Gap 11 mmol/L BUN 14 (9-20) mg/dL Creatinine 0.98 (0.66-1.25) mg/dL Est GFR (CKD-EPI)AfAm >90 (>60 ml/min/1.73 sqM) Est GFR (CKD-EPI)NonAf 83 (>60 ml/min/1.73 sqM) Glucose 100 H (74-99) mg/dL Calcium 10.7 H (8.4-10.2) mg/dL Phosphorus 3.5 (2.5-4.5) mg/dL Magnesium 2.3 (1.6-2.3) mg/dL Total Bilirubin 1.1 (0.2-1.3) mg/dL AST 35 (17-59) U/L ALT 21 (21-72) U/L Alkaline Phosphatase 63 (38-126) U/L Total Protein 8.1 (6.3-8.2) g/dL Albumin 4.9 (3.5-5.0) g/dL Lipase 324 H (23-300) U/L - Radiology Data Radiology results: report reviewed (CT abdomen pelvis negative for acute disease ), image reviewed Disposition Clinical Impression: Dehydration, Nausea vomiting and diarrhea, Gastroenteritis, Failure of outpatient treatment Disposition: ADMITTED IP TO THIS [facility] Condition: Good Is patient prescribed a controlled substance at d/c from ED?: No Referrals: Davy Wheeler DO [Primary Care Provider] - 1-2 days
[2018-01-27] MEDS: PANTOPRAZOLE 40 MG/10 ML VIAL IVP STA ×3 (19:25→21:16)
[2018-01-27 19:34] LABS: Basophils % (A) 0 %; Eosinophils # (A) 0.1 k/uL (0-0.7); Eosinophils % (A) 2 %; HCT 51.3 % (39.0-53.0); HGB 16.9 gm/dL (13.0-17.5); Lymphocytes # (A) 1.4 k/uL (1.0-4.8); Lymphocytes % (A) 20 %; MCH 28.8 pg (25.0-35.0); MCHC 32.9 g/dL (31.0-37.0); MCV 87.5 fL (80.0-100.0); Mean Platelet Volume 6.6; Monocytes # (A) 0.4 k/uL (0-1.0); Monocytes % (A) 5 %; Neutrophils # (A) 5.1 k/uL (1.3-7.7); Neutrophils % (A) 72 %; Platelet Count 295 k/uL (150-450); RBC 5.87 m/uL (4.30-5.90); RDW 13.5 % (11.5-15.5); WBC 7.1 k/uL (3.8-10.6)
[2018-01-27] MEDS ORDERED: MORPHINE SULFATE 4 MG/ML SYRINGE IVP STA (19:41)
[2018-01-27 19:45] LABS: ALT 21 U/L (21-72); AST 35 U/L (17-59); Albumin 4.9 g/dL (3.5-5.0); Alkaline Phosphatase 63 U/L (38-126); Anion Gap 11 mmol/L; Blood Urea Nitrogen 14 mg/dL (9-20); Calcium 10.7 mg/dL (8.4-10.2); Carbon Dioxide 26 mmol/L (22-30); Chloride 104 mmol/L (98-107); Glucose 100 mg/dL (74-99); Lipase 324 U/L (23-300); Sodium 141 mmol/L (137-145); Total Bilirubin 1.1 mg/dL (0.2-1.3); Total Protein 8.1 g/dL (6.3-8.2)
[2018-01-27 19:46] LABS: Potassium 4.7 mmol/L (3.5-5.1)
[2018-01-27 20:21] LABS: Magnesium 2.3 mg/dL (1.6-2.3); Phosphorus 3.5 mg/dL (2.5-4.5)
[2018-01-27] MEDS ORDERED: LORazepam 2 MG/ML INJ IV STA (20:21)
[2018-01-27] MEDS ORDERED: diphenhydrAMINE 50 MG/ML 1 ML VIAL IVP STA (21:32)
[2018-01-27] MEDS ORDERED: METOCLOPRAMIDE 5 MG/ML 2 ML VIAL IVP STA (21:32)
--- NOTE | 2018-01-27 21:56 | CT ---
EXAMINATION TYPE: CT abdomen pelvis w con DATE OF EXAM: 01/27/2018 COMPARISON: 08/04/2010 HISTORY: Abdominal pain and vomiting. CT DLP: 1094 mGycm Automated exposure control for dose reduction was used. TECHNIQUE: Helical acquisition of images was performed from the lung bases through the pelvis. CONTRAST: Performed without Oral Contrast and with IV Contrast, patient injected with 100ml mL of Isovue 300. FINDINGS: Lung bases are clear. There is no pleural effusion. There is no pericardial effusion. Heart is enlarg ed. Liver shows no focal defect. There is clips from cholecystectomy. Spleen appears normal. Pancreas bryan ears normal. The bile ducts are not dilated. There is no adrenal mass. Kidneys show satisfactory cont rast opacification. There is no hydronephrosis. There are 5 mm calculi in the left kidney. There is 1 cm cortical cyst posterior right kidney. Ureters are not dilated. There is no retroperitoneal adenop athy. Bladder distends smoothly. There is an enlarged prostate. There is no inguinal hernia. There is no free fluid in the pelvis. I see no evidence of a bowel obstruction. Lumbar vertebra have normal spacing and alignment. Bony pelvis is intact. IMPRESSION: NEGATIVE CT SCAN OF THE ABDOMEN AND PELVIS. THERE IS CLEARING OF THE ATELECTASIS AT THE LUNG BASES CO MPARED TO OLD EXAM. NONOBSTRUCTING LEFT RENAL CALCULI ARE INCREASED COMPARED TO OLD EXAM. THERE IS CL EARING OF THE INFLAMMATORY CHANGES IN THE DESCENDING COLON COMPARED TO OLD EXAM.
[2018-01-27] MEDS ORDERED: MORPHINE SULFATE 4 MG/ML SYRINGE IVP PRN (22:41)
[2018-01-27] MEDS ORDERED: SODIUM CHLORIDE 0.9% 1,000 ML IV ONE (22:41)
[2018-01-27] MEDS ORDERED: diphenhydrAMINE 50 MG/ML 1 ML VIAL IVP PRN (22:41)
[2018-01-27] MEDS ORDERED: LORazepam 2 MG/ML INJ IV PRN (22:41)
[2018-01-28] MEDS: ONDANSETRON 4 MG/2 ML VIAL IVP PRN ×3 (02:11→13:41)
[2018-01-28] MEDS ORDERED: ONDANSETRON 4 MG TAB PO PRN (09:57)
[2018-01-28] MEDS: PANTOPRAZOLE 40 MG/10 ML VIAL IVP SCH ×2 (14:01→22:32)
[2018-01-28] MEDS ORDERED: BUTALB/APAP/CAFF 50-325-40MG TAB PO PRN (16:58)
[2018-01-28] MEDS ORDERED: ALPRAZolam 0.25 MG TAB PO PRN (17:00)
[2018-01-28] MEDS ORDERED: TEMAZEPAM 15 MG CAP PO PRN (17:00)
[2018-01-28] MEDS ORDERED: HYDROmorphone 1 MG/ML 1 ML SYRINGE IVP PRN (17:00)
[2018-01-28] MEDS ORDERED: HYDROcodone/APAP 5-325MG 1 EACH TAB PO PRN (17:00)
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
[2018-01-28 18:18] LABS: INR 1.1 (<1.2); Prothrombin Time 11.6 sec (9.0-12.0)
[2018-01-28 18:23] LABS: Amylase 90 U/L (30-110); C Reactive Protein <5.0 mg/L (<10.0); Lipase 103 U/L (23-300)
[2018-01-28] MEDS: HEPARIN SODIUM,PORCINE 5,000 UNIT/ML 1 ML VIAL SQ SCH ×2 (18:24→23:25)
[2018-01-28] MEDS: SODIUM CHLORIDE 0.9% 1,000 ML IV SCH ×3 (18:25→22:33)
[2018-01-28 21:39] LABS: Appearance,Urine Cloudy (Clear); Bacteria,Urine Rare /hpf; Bilirubin,Urine Negative (Negative); Blood,Urine Negative (Negative); Color,Urine Yellow; Glucose,Urine (UA) Negative (Negative); Ketones,Urine Negative (Negative); Leukocyte Esterase,Urine Negative (Negative); Mucus,Urine Rare /hpf; Nitrite,Urine Negative (Negative); Protein,Urine Negative (Negative); RBC,Urine 1 /hpf (0-5); Specific Gravity,Urine 1.013 (1.001-1.035); Urobilinogen,Urine <2.0 mg/dL (<2.0); WBC,Urine 4 /hpf (0-5)
[2018-01-28 21:47] LABS: Amphetamine Screen,Urine Not Detected (NotDetected); Barbiturate Screen,Urine Not Detected (NotDetected); Benzodiazepines Screen,Urine Detected (NotDetected); Cocaine Screen,Urine Not Detected (NotDetected); Methadone Screen, Urine Not Detected (NotDetected); Opiate Screen,Urine Not Detected (NotDetected); Oxycodone Screen, Urine Not Detected (NotDetected); Phencyclidine Screen,Urine Not Detected (NotDetected); Tricyclic Antidepressant,Urine Not Detected (NotDetected); Urn Cannabinoid Scrn Not Detected (NotDetected)
[2018-01-28] MEDS: DOXAZOSIN 4 MG TAB PO SCH (22:25)
[2018-01-28] MEDS: MIRTAZAPINE 15 MG TAB PO SCH (22:25)
[2018-01-28] MEDS: PRIMIDONE 50 MG TAB PO SCH (22:26)
[2018-01-28] MEDS: SERTRALINE 100 MG TAB PO SCH (22:26)
[2018-01-28] MEDS: CYCLOBENZAPRINE 10 MG TAB PO SCH (22:26)
[2018-01-28] MEDS: TOPIRAMATE 25 MG TAB PO SCH (22:27)
[2018-01-29] MEDS: LEVOTHYROXINE 88 MCG TAB PO SCH (05:57)
[2018-01-29 10:08] LABS: Basophils % (A) 0 %; Eosinophils # (A) 0.2 k/uL (0-0.7); Eosinophils % (A) 2 %; HCT 44.5 % (39.0-53.0); HGB 14.5 gm/dL (13.0-17.5); Lymphocytes # (A) 1.4 k/uL (1.0-4.8); Lymphocytes % (A) 22 %; MCH 28.6 pg (25.0-35.0); MCHC 32.7 g/dL (31.0-37.0); MCV 87.5 fL (80.0-100.0); Monocytes # (A) 0.3 k/uL (0-1.0); Monocytes % (A) 5 %; Neutrophils # (A) 4.3 k/uL (1.3-7.7); Neutrophils % (A) 69 %; Platelet Count 267 k/uL (150-450); RBC 5.08 m/uL (4.30-5.90); RDW 13.2 % (11.5-15.5); WBC 6.3 k/uL (3.8-10.6)
[2018-01-29 10:12] LABS: Potassium 4.1 mmol/L (3.5-5.1)
[2018-01-29] MEDS: HEPARIN SODIUM,PORCINE 5,000 UNIT/ML 1 ML VIAL SQ SCH ×2 (11:08→18:05)
[2018-01-29] MEDS: PANTOPRAZOLE 40 MG/10 ML VIAL IVP SCH ×2 (11:08→21:20)
--- NOTE | 2018-01-29 14:24 | P.CONS ---
History of Present Illness - Reason for Consult Consult date: 01/29/18 Nausea vomiting epigastric pain Requesting physician: Edvin Callahan - Chief Complaint Nausea vomiting epigastric pain - History of Present Illness 62-year-old gentleman with a history of GERD chronic diarrhea, multiple episodes of Clostridium difficile colitis last episode a year ago, admitted with acute epigastric pain nausea vomiting black colored bowel movements 1 week. Patient was placed on steroids one week ago for right lower extremity pain. He took 2 doses of steroids and immediately developed intractable nausea vomiting epigastric pain with multiple episodes of black-colored bowel movements. No history of GI bleed. No recent antibiotics. CT abdomen and pelvis reported is negative. History of remote peptic ulcer disease more than 10 years ago. Last colonoscopy about 5 years ago. No recent EGD. White count 6.3-7.1. Hemoglobin 14.5-16.9. INR 1.1. BUN 14. Creatinine 0.9. LFTs within normal limits. Lipase 324 presently 103. Amylase 90. No usage of aspirin or NSAIDs or alcohol. Review of Systems Constitutional: Denies fever, chills, sweats, weight gain, or loss. HEENT: Negative for migraines, blurred vision or loss, earaches, drainage, tinnitus, oral mucosal lesions, dysphagia, or odynophagia. Cardiac: Negative for chest pain, arrhythmias, or palpitation. Respiratory: Negative for shortness of breath, hemoptysis, cough, or sputum production. Gastrointestinal: See HPI for pertinent findings. Genitourinary: Negative for hematuria, urgency, frequency, polyuria, dysuria, or penile discharge. Musculoskeletal: Negative for muscle aches, swelling, arthritis, and arthralgias. Neurologic: Negative for stroke or TIA. Endocrine: Negative for thyroid problems. Skin: Negative for rash or itching. Psychiatric: Negative history for depression and anxiety Past Medical History Past Medical History: Asthma, GERD/Reflux, GI Bleed, Hypertension, Musculoskeletal Disorder, Pulmonary Embolus (PE), Sleep Apnea/CPAP/BIPAP, Thyroid Disorder Additional Past Medical History / Comment(s): RT SHOULDER INJURY. History of Any Multi-Drug Resistant Organisms: C-DIFF Year Discovered:: 04/19/2016 MDRO Source:: STOOL Past Surgical History: Back Surgery, Cholecystectomy, Hernia Repair, Orthopedic Surgery Additional Past Surgical History / Comment(s): RT HAND FB REMOVAL. CERVICAL SPINAL FUSION X3. HERNIA REPAIR 01/2017. SINUS RECONSTRUCTIVE SURGERY - IN DIAGNOSIS OF SLEEP APNEA Past Anesthesia/Blood Transfusion Reactions: Previous Problems w/ Anesthesia, Motion Sickness, Postoperative Nausea & Vomiting (PONV) Additional Past Anesthesia/Blood Transfusion Reaction / Comm: AWAKES W/ BEING UNABLE TO BREATHE; DRY HEAVES SEVERE, NO RX HELPED. Past Psychological History: Anxiety Additional Psychological History / Comment(s): PATIENT HAS ANGER ISSUES TAKES ZOLOFT FOR THIS. Smoking Status: Never smoker Past Alcohol Use History: None Reported Past Drug Use History: None Reported - Past Family History Sister(s) Family Medical History: Cancer Medications and Allergies Home Medications Medication Instructions Recorded Confirmed Type Sertraline HCl [Zoloft] 200 mg PO HS 03/29/15 01/27/18 History Butalb/APAP/Caff 50-325-40Mg 1 - 2 tab PO Q6H PRN 04/26/17 01/27/18 History [Fioricet 50-325-40] Cyclobenzaprine HCl 10 mg PO HS 04/26/17 01/27/18 History Mirtazapine [Remeron] 15 mg PO HS 04/26/17 01/27/18 History Primidone [Mysoline] 50 mg PO HS 04/26/17 01/27/18 History Doxazosin [Cardura] 4 mg PO HS 01/27/18 01/27/18 History Levothyroxine Sodium [Synthroid] 88 mcg PO DAILY 01/27/18 01/27/18 History Ondansetron HCl [Zofran] 4 mg PO Q8HR PRN 01/27/18 01/28/18 History Topiramate [Topamax] 50 mg PO HS 01/27/18 01/27/18 History metroNIDAZOLE [Flagyl] 500 mg PO TID 01/27/18 01/28/18 History predniSONE See Taper PO DIRECTED 01/27/18 01/28/18 History Allergies Allergy/AdvReac Type Severity Reaction Status Date / Time meperidine HCl [From Demerol] Allergy Rash/Hives Verified 01/27/18 18:49 silver sulfadiazine Allergy Itching, Verified 01/27/18 18:49 [From Silvadene] KIM SKIN Physical Exam Vitals: Vital Signs Temp Pulse Resp BP Pulse Ox 01/29/18 11:13 98.5 F 66 16 133/81 97 01/29/18 00:05 98.0 F 73 15 146/88 96 01/28/18 20:07 98.4 F 64 16 150/80 99 01/28/18 16:29 17 01/28/18 16:27 151/98 01/28/18 15:00 98.5 F 75 17 95 Intake and Output 01/28/18 01/29/18 01/29/18 22:59 06:59 14:59 Intake Total 350 410 Output Total 300 Balance 50 410 Intake: Intake, IV Titration 300 400 Amount Sodium Chloride 0.9% 1, 300 400 000 ml @ 100 mls/hr IV . Q10H QUANG Rx#:[id number] Oral 50 10 Output: Urine 300 Other: Voiding Method Toilet # Voids 2 1 # Bowel Movements 0 General appearance: The patient is alert, oriented, in no acute distress. HET: Head is normocephalic and atraumatic. Pupils are equal and reactive. Oropharynx is clear without lesions. Neck: Supple without lymphadenopathy. Trachea midline. Heart: S1 S2. Regular rate and rhythm. Lungs: No crackles or wheezes are heard. Abdomen: Soft, mild midepigastric tenderness, nondistended with bowel sounds. No peritoneal signs. No palpable organomegaly or masses. Extremities: Normal skin color and turgor. No cyanosis, rash, ulceration, clubbing, or edema. Radial and pedal pulses are 2/4 bilaterally. Neurological: No focal deficits. Strength and sensation are grossly intact. Results CBC & Chem 7: 01/29/18 08:50 01/29/18 08:50 Labs: Abnormal Lab Results - Last 24 Hours (Table) 01/28/18 01/28/18 Range/Units 21:10 21:10 Urine Bacteria Rare H (None) /hpf Urine Mucus Rare H (None) /hpf U Benzodiazepines Scrn Detected H (NotDetected) CT scan - abdomen: report reviewed (Dr. Isbell) Assessment and Plan (1) Epigastric pain Narrative/Plan: 62-year-old male with a history of chronic diarrhea multiple episodes of Clostridium difficile colitis last episode 1 year ago presents with intractable nausea vomiting black colored diarrhea and epigastric pain 1 week. Possible peptic ulcer disease possible esophagitis possible gastritis. Chronic diarrhea possible IBS-D underlying inflammatory bowel disease possible celiac within the differential. Current Visit: Yes Status: Acute Code(s): R10.13 - EPIGASTRIC PAIN SNOMED Code(s): 08811107 (2) Nausea vomiting and diarrhea Current Visit: Yes Status: Acute Code(s): R11.2 - NAUSEA WITH VOMITING, UNSPECIFIED; R19.7 - DIARRHEA, UNSPECIFIED SNOMED Code(s): 7401374 Plan: 1. EGD evaluation first considering the report of upper GI symptoms darker colored bowel movements. Outpatient colonoscopy discussed pending upper endoscopy findings. Patient is agreeable with this plan of care. Stool studies including celiac panel and Clostridium difficile EIA requested. 2. Protonix 40 mg twice daily. The sanding machine tender automatic has discussed the risks, benefits and alternative therapies for the above-mentioned procedure and for both sedation/analgesia as well as necessary blood product administration, if indicated, as they pertain to this patient. The patient has indicated understanding and acceptance of the risks and procedures discussed. Thank you for this kind referral and the opportunity to participate in the care of your patient. This consultation was discussed with Dr. Isbell. The impression and plan of care have been directed as dictated.
--- NOTE | 2018-01-29 17:55 | PN ---
PROGRESS NOTE DATE OF SERVICE: 01/29/2018 This 62-year-old gentleman who was admitted with multiple diagnoses, including abdominal pain and distention and also diarrhea, had significant history of recurrent C difficile infection. The patient also had left renal calculi. The patient is being closely monitored at this time. Gastroenterology is following the patient closely for possible endoscopies. Past medical history reviewed. REVIEW OF SYSTEMS: CARDIOVASCULAR SYSTEM: No angina, palpitations. RESPIRATORY SYSTEM: As mentioned earlier. GI: As mentioned earlier. : No dysuria or retention. NERVOUS SYSTEM: No numbness, weakness.. CURRENT MEDICATIONS: Reviewed. They include: 1. Fioricet q.6 p.r.n. 2. [place] 5 mg p.o. p.r.n. 3. Xanax 0.25 t.i.d. 4. Flexeril 10 mg. 5. Benadryl 25 mg. 6. Cardura 4 mg. 7. Heparin 5000 units subcutaneously b.i.d. 8. Synthroid 88. 9. Ativan. 10.Remeron. 11.Zofran. 12.Protonix. 13.Zoloft. 14.Restoril. PHYSICAL EXAMINATION: Patient is alert, oriented x3. Pulse is 66, blood pressure 133/81, respirations 16, temperature 98.4, pulse ox 97% on room air. HEENT: Conjunctivae normal. NECK: No jugular venous distention. CARDIOVASCULAR SYSTEM: S1, S2 muffled. RESPIRATORY SYSTEM: Breath sounds diminished at the bases. Scattered rhonchi and crackles. ABDOMEN: Soft. Mild diffuse discomfort to palpation. Mild diffuse distention. Bowel sounds present. LEGS: No edema. No swelling. NERVOUS SYSTEM: No focal deficit. LABS: CBC and BMP normal. ASSESSMENT: 1. Abdominal distention, vomiting, diarrhea; possible acute gastroenteritis and gastritis; rule out peptic ulcer disease. 2. Rule out Clostridium difficile colitis. 3. History of previous recurrent Clostridium difficile colitis. 4. Left renal calculus. 5. Asthma. 6. Gastroesophageal reflux disease. 7. History of gastrointestinal bleed. 8. Hypertension. 9. History of degenerative joint disease. 10.History of pulmonary embolism. 11.History of obstructive sleep apnea. 12.History of hypothyroidism. 13.History of right shoulder injury. 14.History of cholecystectomy. 15.History of anxiety. RECOMMENDATIONS AND DISCUSSION: I recommend to continue current medication, continue symptomatic treatment. Otherwise, at this time we will await gastroenterology evaluation. Possible EGD. The patient will also require a colonoscopy. Otherwise, continue the symptomatic treatment. See orders for further details. Guarded prognosis because of multiple complex medical issues. Further recommendations to follow. MMODL / IJN: [id number] /
[2018-01-29] MEDS: SODIUM CHLORIDE 0.9% 1,000 ML IV SCH (18:05)
[2018-01-29] MEDS: MIRTAZAPINE 15 MG TAB PO SCH (21:21)
[2018-01-29] MEDS: TOPIRAMATE 25 MG TAB PO SCH (21:21)
[2018-01-29] MEDS: SERTRALINE 100 MG TAB PO SCH (21:21)
[2018-01-29] MEDS: CYCLOBENZAPRINE 10 MG TAB PO SCH (21:21)
[2018-01-29] MEDS: PRIMIDONE 50 MG TAB PO SCH (21:21)
[2018-01-29] MEDS: DOXAZOSIN 4 MG TAB PO SCH (21:21)
[2018-01-30] MEDS: SODIUM CHLORIDE 0.9% 1,000 ML IV SCH ×3 (00:31→21:22)
[2018-01-30] MEDS: HEPARIN SODIUM,PORCINE 5,000 UNIT/ML 1 ML VIAL SQ SCH ×3 (00:31→18:42)
[2018-01-30 05:06] LABS: Gliadin AB IgA, Unit 0.4 U/mL
[2018-01-30] MEDS: LEVOTHYROXINE 88 MCG TAB PO SCH (05:52)
[2018-01-30 08:35] LABS: Basophils % (A) 1 %; Eosinophils # (A) 0.1 k/uL (0-0.7); Eosinophils % (A) 2 %; HCT 42.9 % (39.0-53.0); HGB 13.9 gm/dL (13.0-17.5); Lymphocytes # (A) 1.3 k/uL (1.0-4.8); Lymphocytes % (A) 24 %; MCH 28.6 pg (25.0-35.0); MCHC 32.5 g/dL (31.0-37.0); Mean Platelet Volume 6.7; Monocytes # (A) 0.3 k/uL (0-1.0); Monocytes % (A) 6 %; Neutrophils # (A) 3.6 k/uL (1.3-7.7); Neutrophils % (A) 66 %; Platelet Count 258 k/uL (150-450); RBC 4.88 m/uL (4.30-5.90); RDW 13.3 % (11.5-15.5); WBC 5.4 k/uL (3.8-10.6)
[2018-01-30] MEDS: PANTOPRAZOLE 40 MG/10 ML VIAL IVP SCH (10:17)
[2018-01-30] MEDS ORDERED: LIDOCAINE 1% INJ 10MG/ML (20 ML MDV) ONE (13:52)
[2018-01-30] MEDS ORDERED: PROPOFOL 10 MG/ML 20 ML VIAL IV ONE (13:52)
[2018-01-30] MEDS ORDERED: IV FLUID CONTINUATION 1,000 ML IV ONE (13:54)
--- NOTE | 2018-01-30 14:28 | P.PCN ---
Date of Procedure: 01/30/18 Description of Procedure: BRIEF HISTORY: 62-year-old gentleman with a history of GERD chronic diarrhea, multiple episodes of Clostridium difficile colitis last episode a year ago, admitted with acute epigastric pain nausea vomiting black colored bowel movements 1 week. Patient was placed on steroids one week ago for right lower extremity pain. He took 2 doses of steroids and immediately developed intractable nausea vomiting epigastric pain with multiple episodes of black- colored bowel movements. No history of GI bleed. No recent antibiotics. CT abdomen and pelvis reported is negative. History of remote peptic ulcer disease more than 10 years ago. Last colonoscopy about 5 years ago. No recent EGD. White count 6.3-7.1. Hemoglobin 14.5-16.9. . PROCEDURE PERFORMED: Esophagogastroduodenoscopy with biopsy. PREOPERATIVE DIAGNOSIS: Nausea and vomiting, melena, GERD. ESTIMATED BLOOD LOSS: Minimal. IV sedation per anesthesia. PROCEDURE: After informed consent was obtained, the patient was brought into the endoscopy unit. IV sedation was administered by Anesthesia under continuous monitoring. Initially the Olympus GIF-190 video endoscope was inserted into the mouth. Esophagus intubated without any difficulty. It was gradually advanced into the stomach and duodenum and carefully examined. The bulb and the second part of the duodenum appeared normal with biopsies taken. The scope at this time was withdrawn to the stomach, adequately insufflated with air, and upon careful examination, mucosa of the antrum, body, cardia and the fundus with no gross abnormalities seen. There was diffuse mild erythema of the antrum and body suggestive of gastritis which was biopsied. The scope was then withdrawn into the esophagus. The GE junction was located at 42 cm from the incisors and appeared irregular suggestive of possible Lazo's esophagus with biopsies taken. The esophagus otherwise appeared normal. There were no erosions or ulcerations seen and the patient tolerated the procedure well. IMPRESSION: 1. Mild gastritis, biopsied. Irregular Z line, biopsied. Duodenum biopsied. 2. No evidence of active GI bleeding noted. RECOMMENDATIONS: The findings of this examination were discussed with the patient and this patient. Okay for diet. Continue to monitor hemoglobin. Continue Protonix daily. Follow up pathology monitor hemoglobin introduced use as needed.
--- NOTE | 2018-01-30 15:14 | PN ---
PROGRESS NOTE DATE OF SERVICE: 01/30/2018 This is a 62-year-old gentleman who was admitted with abdominal distention, pain and diarrhea, had possible acute gastroenteritis. The patient is slated to have endoscopy by Gastroenterology today. No chest pain. No palpitations. No fever. PHYSICAL EXAM: Alert and oriented x3. Pulse 63, blood pressure 170/97, respirations 16, temperature 97.4, pulse ox 99% on room air. HEENT: Conjunctivae normal. NECK: No jugular venous distension. CARDIOVASCULAR: S1, S2. RESPIRATORY: Breath sounds diminished at the bases, no rhonchi, no crackles. ABDOMEN: Soft, mild diffuse distention present, no tenderness. No guarding, no rigidity. LEGS: No edema, no cyanosis. NERVOUS SYSTEM: No focal deficits. LABS: CBC within normal limits. BMP noted. ASSESSMENT: 1. Abdominal distention, vomiting, diarrhea, possible acute gastroenteritis, gastritis, rule out peptic ulcer disease. 2. Rule out Clostridium difficile colitis. 3. History of previous recurrent Clostridium difficile colitis. 4. Left renal cancer, history of asthma. history of gastroesophageal reflux disease. 5. History of gastrointestinal bleed. 6. Hypertension. 7. History of degenerative joint disease. 8. History of pulmonary embolism. 9. History of sleep apnea. 10.History of hypothyroidism. 11.Right shoulder injury. 12.History of cholecystectomy. 13.History of anxiety. RECOMMENDATION: Recommend to continue current management and symptomatic treatment. Otherwise, I would recommend EGD. Continue the rest of medications, symptomatic treatment. Depending upon the EGD findings, the diet may be advanced and continue to monitor. Otherwise, prognosis guarded because of multiple complex medical issues. Further recommendations to follow. MMODL / IJN: [id number] /
[2018-01-30] MEDS: PANTOPRAZOLE 40 MG TABLET PO SCH (18:55)
[2018-01-30] MEDS: PRIMIDONE 50 MG TAB PO SCH (21:22)
[2018-01-30] MEDS: MIRTAZAPINE 15 MG TAB PO SCH (21:22)
[2018-01-30] MEDS: CYCLOBENZAPRINE 10 MG TAB PO SCH (21:22)
[2018-01-30] MEDS: SERTRALINE 100 MG TAB PO SCH (21:22)
[2018-01-30] MEDS: DOXAZOSIN 4 MG TAB PO SCH (21:22)
[2018-01-30] MEDS: TOPIRAMATE 25 MG TAB PO SCH (21:23)
[2018-01-31] MEDS: HEPARIN SODIUM,PORCINE 5,000 UNIT/ML 1 ML VIAL SQ SCH ×2 (00:13→07:41)
[2018-01-31 03:40] VITALS: RESP 16
[2018-01-31] MEDS: LEVOTHYROXINE 88 MCG TAB PO SCH (06:06)
[2018-01-31] MEDS: SODIUM CHLORIDE 0.9% 1,000 ML IV SCH (06:07)
[2018-01-31 07:14] LABS: Basophils % (A) 0 %; Eosinophils # (A) 0.2 k/uL (0-0.7); Eosinophils % (A) 3 %; HCT 44.1 % (39.0-53.0); HGB 14.1 gm/dL (13.0-17.5); Lymphocytes # (A) 1.8 k/uL (1.0-4.8); Lymphocytes % (A) 29 %; MCH 28.3 pg (25.0-35.0); MCHC 31.9 g/dL (31.0-37.0); MCV 88.5 fL (80.0-100.0); Mean Platelet Volume 6.9; Monocytes # (A) 0.4 k/uL (0-1.0); Monocytes % (A) 7 %; Neutrophils # (A) 3.7 k/uL (1.3-7.7); Neutrophils % (A) 60 %; Platelet Count 251 k/uL (150-450); RBC 4.99 m/uL (4.30-5.90); RDW 13.3 % (11.5-15.5); WBC 6.3 k/uL (3.8-10.6)
[2018-01-31 07:40] LABS: Calcium 8.9 mg/dL (8.4-10.2)
[2018-01-31] MEDS: PANTOPRAZOLE 40 MG TABLET PO SCH (07:41)
[2018-01-31 08:12] LABS: Potassium 4.1 mmol/L (3.5-5.1)
[2018-01-31 08:27] VITALS: BP 130/74; PULSE 62; TEMP 97.7
--- NOTE | 2018-01-31 13:36 | P.PN ---
Subjective Progress Note Date: 01/31/18 Principal diagnosis: Epigastric pain nausea vomiting diarrhea Afebrile. Denies abdominal pain. No nausea vomiting or diarrhea. Status post EGD with gastritis biopsies pending. Tolerating regular diet. Objective - Vital Signs Vital signs: Vital Signs Temp 97.7 F 01/31/18 07:00 Pulse 62 01/31/18 07:00 Resp 16 01/31/18 07:00 BP 130/74 01/31/18 07:00 Pulse Ox 98 01/31/18 07:00 Intake & Output 01/30/18 01/31/18 01/31/18 18:59 06:59 18:59 Intake Total 1050 1600 150 Balance 1050 1600 150 Intake: IV 100 Intake, IV Titration 800 1600 Amount Sodium Chloride 0.9% 1, 800 1600 000 ml @ 100 mls/hr IV . Q10H QUANG Rx#:[id number] Oral 150 150 Other: # Voids 1 - Exam General appearance: The patient is alert, oriented, in no acute distress. HET: Head is normocephalic and atraumatic. Pupils are equal and reactive. Oropharynx is clear without lesions. Neck: Supple without lymphadenopathy. Trachea midline. Heart: S1 S2. Regular rate and rhythm. Lungs: No crackles or wheezes are heard. Abdomen: Soft, nontender, nondistended with bowel sounds. No peritoneal signs. No palpable organomegaly or masses. Extremities: Normal skin color and turgor. No cyanosis, rash, ulceration, clubbing, or edema. Radial and pedal pulses are 2/4 bilaterally. Neurological: No focal deficits. Strength and sensation are grossly intact. - Labs CBC & Chem 7: 01/31/18 06:31 01/31/18 06:31 Labs: Abnormal Lab Results - Last 24 Hours (Table) 01/31/18 Range/Units 06:31 Chloride 110 H (98-107) mmol/L Microbiology - Last 24 Hours (Table) 01/30/18 15:54 Stool Culture - Preliminary Stool Assessment and Plan (1) Epigastric pain Narrative/Plan: Status post EGD gastritis irregular Z line biopsies pending. Current Visit: Yes Status: Acute Code(s): R10.13 - EPIGASTRIC PAIN SNOMED Code(s): 12799169 (2) Nausea vomiting and diarrhea Current Visit: Yes Status: Acute Code(s): R11.2 - NAUSEA WITH VOMITING, UNSPECIFIED; R19.7 - DIARRHEA, UNSPECIFIED SNOMED Code(s): 2153871 (3) Gastroenteritis Current Visit: Yes Status: Acute Code(s): K52.9 - NONINFECTIVE GASTROENTERITIS AND COLITIS, UNSPECIFIED SNOMED Code(s): 40026129 Plan: Protonix 40 mg twice daily. Follow-up in office in 2-3 weeks. Agreeable for discharge. Assessment and plan a care discussed with Dr. Isbell
--- NOTE | 2018-02-02 08:26 | DS ---
DISCHARGE SUMMARY DATE OF ADMISSION: 01/27/2018. DATE OF DISCHARGE: 01/31/2018 FINAL DIAGNOSES: 1. Acute gastroenteritis possibly viral. 2. Intermittent asthma. 3. Gastroesophageal reflux disease. 4. Essential hypertension. 5. Obstructive sleep apnea. 6. Hypothyroid. 7. Anxiety not otherwise specified. HOSPITAL COURSE: This patient presented with nausea, vomiting, diarrhea, abdominal pain. There was no fever, no white count. The patient did undergo EGD by Dr. Isbell, found to have minimal gastritis. Helicobacter pylori was not identified. The patient is tolerating his diet. Told to follow a bland diet for a few days. CONSULTATION: Dr. Isbell from Gastroenterology. PHYSICAL EXAMINATION: VITAL SIGNS: Temperature 97.7, pulse 62, respiration 16, blood pressure 130/74, pulse ox 98% on room air. ABDOMEN: Soft, nontender. LABS: White count 5.4, hemoglobin 13.9, BUN and creatinine normal. DISCHARGE MEDICATIONS: 1. Zoloft 200 mg q.h.s. 2. Fioricet p.r.n. 3. Cyclobenzaprine 10 mg p.o. q.h.s. 4. Remeron 50 mg q.h.s. 5. Mysoline 50 mg q.h.s. 6. Cardura 4 mg q.h.s. 7. Synthroid 88 mcg p.o. daily. 8. Zofran 4 mg q.8h p.r.n. 9. Topamax 50 mg at bedtime. 10.Pepcid 20 mg b.i.d. FOLLOWUP: Follow up with Dr. Brown on February 21, 2018. Follow up with Dr. May in 3 days. Diet, soft bland. Copy to Dr. May. MMODL / IJN: [id number] /
== END 2018-01-31 16:25 | disposition home or self-care (01) ==
LOC: EC 18:30 → 4SSUR 22:47
PROVIDERS: ADMIT Hospitalist; ATTEND Hospitalist
DX: K52.9 Noninfective gastroenteritis and colitis, unspecified (principal); E86.0 Dehydration; J45.20 Mild intermittent asthma, uncomplicated; K21.9 Gastro-esophageal reflux disease without esophagitis; I10 Essential (primary) hypertension; G47.33 Obstructive sleep apnea (adult) (pediatric); E03.9 Hypothyroidism, unspecified; F41.9 Anxiety disorder, unspecified; R45.4 Irritability and anger; N20.0 Calculus of kidney; K29.70 Gastritis, unspecified, without bleeding; M19.90 Unspecified osteoarthritis, unspecified site; Z87.11 Personal history of peptic ulcer disease; Z86.19 Personal history of other infectious and parasitic diseases; Z79.890 Hormone replacement therapy; Z79.899 Other long term (current) drug therapy; Z88.5 Allergy status to narcotic agent; Z88.8 Allergy status to other drugs, medicaments and biological substances; Z87.19 Personal history of other diseases of the digestive system; Z86.711 Personal history of pulmonary embolism; G25.81 Restless legs syndrome; Z16.24 Resistance to multiple antibiotics; Z90.49 Acquired absence of other specified parts of digestive tract; Z98.1 Arthrodesis status; Z80.9 Family history of malignant neoplasm, unspecified; Z87.828 Personal history of other (healed) physical injury and trauma
CPT/HCPCS: 96376 ×3; 96361 ×4; 96372 ×3; 96374; 96375; 99285; 36415; 88305; 80053; 80048 ×3; 85652; 82150; 83690 ×2; 83735; 84100; 85025 ×4; 85610; 86140 ×2; 81001; 83993; 80306; 83516 ×4; 87045; 87329; 83630; 87046; 74177; 43239; G0378 ×5; J2060 ×2; J2270; J1200; J1644 ×4; J2765; J2405 ×2; J2001; J2704; C9113 ×3; Q9967

== ENCOUNTER 2018-10-30 17:45 | Emergency (ER) | payer BC, OTHER ==
[2018-10-30 17:54] VITALS: TEMP 98.1
[2018-10-30] MEDS ORDERED: ONDANSETRON 4 MG/2 ML VIAL IVP STA (18:19)
[2018-10-30] MEDS ORDERED: SODIUM CHLORIDE 0.9% 1,000 ML IV STA (18:19)
[2018-10-30] MEDS ORDERED: PANTOPRAZOLE 40 MG/10 ML VIAL IVP STA (18:21)
--- NOTE | 2018-10-30 18:24 | ED ---
General Adult HPI - General Chief complaint: Nausea/Vomiting/Diarrhea Stated complaint: Vomiting Time Seen by Provider: 10/30/18 18:01 Source: patient Mode of arrival: ambulatory Limitations: no limitations - History of Present Illness Initial comments: Patient is 63-year-old male with history of chronic GERD is presenting to emergency Department with chief complaint of nausea vomiting. Patient reports he developed nausea yesterday with multiple episodes of vomiting. Patient reports he was able to eat some food afterward but was not able to keep it down. Patient reports continuous nausea until today along with vomiting. Patient denies diarrhea. Patient has a history of C. diff. Patient reports he was admitted for further evaluation approximately 8 months ago with a similar symptoms. No underlying cause was found. Patient denies hemoptysis. Patient reports abdominal discomfort and states that is due to the continuous efforts to vomit. Patient reports epigastric burning sensation. Patient denies taking medication to alleviate the symptoms. Patient denies night sweats fevers or chills. - Related Data Home Medications Medication Instructions Recorded Confirmed Sertraline HCl [Zoloft] 200 mg PO HS 03/29/15 10/30/18 Cyclobenzaprine HCl 10 mg PO TID PRN 04/26/17 10/30/18 Doxazosin [Cardura] 4 mg PO HS 01/27/18 10/30/18 Topiramate [Topamax] 50 mg PO HS 01/27/18 10/30/18 Levothyroxine Sodium [Synthroid] 100 mcg PO DAILY 10/30/18 10/30/18 Lisinopril [Zestril] 10 mg PO DAILY 10/30/18 10/30/18 Mirtazapine [Mirtazapine 15 mg PO HS 10/30/18 10/30/18 (Soluspan)] Pantoprazole Sodium [Protonix] 40 mg PO DAILY 10/30/18 10/30/18 Pramipexole [Mirapex] 0.25 mg PO HS 10/30/18 10/30/18 Previous Rx's Medication Instructions Recorded Metoclopramide [Reglan] 10 mg PO Q6HR PRN #24 tab 10/30/18 Allergies Allergy/AdvReac Type Severity Reaction Status Date / Time meperidine HCl [From Demerol] Allergy Rash/Hives Verified 10/30/18 18:20 silver sulfadiazine Allergy Itching, Verified 10/30/18 18:20 [From Silvadene] KIM SKIN Review of Systems ROS Statement: Those systems with pertinent positive or pertinent negative responses have been documented in the HPI. ROS Other: All systems not noted in ROS Statement are negative. Past Medical History Past Medical History: Asthma, GERD/Reflux, GI Bleed, Hypertension, Musculoskeletal Disorder, Pulmonary Embolus (PE), Sleep Apnea/CPAP/BIPAP, Thyroid Disorder Additional Past Medical History / Comment(s): RT SHOULDER INJURY. History of Any Multi-Drug Resistant Organisms: C-DIFF Date of last positivie culture/infection: 04/19/2016 MDRO Source:: STOOL Past Surgical History: Back Surgery, Cholecystectomy, Hernia Repair, Orthopedic Surgery Additional Past Surgical History / Comment(s): RT HAND FB REMOVAL. CERVICAL SPINAL FUSION X3. HERNIA REPAIR 01/2017. SINUS RECONSTRUCTIVE SURGERY - IN DIAGNOSIS OF SLEEP APNEA Past Anesthesia/Blood Transfusion Reactions: Previous Problems w/ Anesthesia, Motion Sickness, Postoperative Nausea & Vomiting (PONV) Additional Past Anesthesia/Blood Transfusion Reaction / Comment(s): AWAKES W/ BEING UNABLE TO BREATHE; DRY HEAVES SEVERE, NO RX HELPED. Past Psychological History: Anxiety Smoking Status: Never smoker Past Alcohol Use History: None Reported Past Drug Use History: None Reported - Past Family History Sister(s) Family Medical History: Cancer General Exam Limitations: no limitations General appearance: alert, in no apparent distress Head exam: Present: atraumatic, normocephalic, normal inspection Eye exam: Present: normal appearance, PERRL, EOMI Pupils: Present: normal accommodation ENT exam: Present: normal exam, normal oropharynx, mucous membranes dry, TM's normal bilaterally, normal external ear exam Neck exam: Present: normal inspection, full ROM Respiratory exam: Present: normal lung sounds bilaterally Cardiovascular Exam: Present: regular rate, normal rhythm, normal heart sounds GI/Abdominal exam: Present: soft, tenderness (Epigastric), normal bowel sounds. Absent: guarding, rebound Extremities exam: Present: normal inspection, full ROM, normal capillary refill Back exam: Present: normal inspection, full ROM Neurological exam: Present: alert, oriented X3 Psychiatric exam: Present: normal affect, normal mood Skin exam: Present: warm, intact, normal color Course Vital Signs 10/30/18 10/30/18 17:52 20:02 Temperature 98.1 F Pulse Rate 63 61 Respiratory 20 18 Rate Blood Pressure 136/81 126/94 O2 Sat by Pulse 100 98 Oximetry Medical Decision Making - Medical Decision Making Patient is a 63-year-old male presenting to the emergency department with a chief complaint of nausea or vomiting. The symptoms have been ongoing since yesterday. Patient reported using oral Zofran with minimal improvement. Patien t denies hemoptysis. Patient denies fever or chills. Patient denies any diarrhea. CBC, CMP and UA are unremarkable. Patient given fluids and Zofran with minimal improvement. Patient given Reglan. On reevaluation patient reports the nausea has resolved. Patient reports he was admitted approximately 2 months ago and they could not find a reason for the symptoms he was having. Patient reports all Zofran does not work for him. Patient will be discharged with Reglan. Patient advised to follow-up with primary care. Strict return parameters were thoroughly discussed the patient was understanding and agreeable. Case discussed physician. - Lab Data Result diagrams: 10/30/18 18:45 10/30/18 18:45 Lab Results 10/30/18 10/30/18 10/30/18 Range/Units 18:45 18:45 20:11 WBC 10.1 (3.8-10.6) k/uL RBC 5.60 (4.30-5.90) m/uL Hgb 16.3 (13.0-17.5) gm/dL Hct 48.3 (39.0-53.0) % MCV 86.2 (80.0-100.0) fL MCH 29.0 (25.0-35.0) pg MCHC 33.7 (31.0-37.0) g/dL RDW 13.6 (11.5-15.5) % Plt Count 290 (150-450) k/uL Neutrophils % 84 % Lymphocytes % 10 % Monocytes % 4 % Eosinophils % 1 % Basophils % 1 % Neutrophils # 8.4 H (1.3-7.7) k/uL Lymphocytes # 1.0 (1.0-4.8) k/uL Monocytes # 0.4 (0-1.0) k/uL Eosinophils # 0.1 (0-0.7) k/uL Basophils # 0.1 (0-0.2) k/uL Sodium 140 (137-145) mmol/L Potassium 4.3 (3.5-5.1) mmol/L Chloride 103 (98-107) mmol/L Carbon Dioxide 24 (22-30) mmol/L Anion Gap 13 mmol/L BUN 17 (9-20) mg/dL Creatinine 1.26 H (0.66-1.25) mg/dL Est GFR (CKD-EPI)AfAm 70 (>60 ml/min/1.73 sqM) Est GFR (CKD-EPI)NonAf 60 (>60 ml/min/1.73 sqM) Glucose 114 H (74-99) mg/dL Calcium 10.2 (8.4-10.2) mg/dL Total Bilirubin 0.8 (0.2-1.3) mg/dL AST 31 (17-59) U/L ALT 23 (21-72) U/L Alkaline Phosphatase 77 (38-126) U/L Total Protein 7.9 (6.3-8.2) g/dL Albumin 4.9 (3.5-5.0) g/dL Amylase 108 (30-110) U/L Lipase 125 (23-300) U/L Urine Color Yellow Urine Appearance Clear (Clear) Urine pH 7.5 (5.0-8.0) Ur Specific [place] 1.020 (1.001-1.035) Urine Protein Trace H (Negative) Urine Glucose (UA) Negative (Negative) Urine Ketones Negative (Negative) Urine Blood Negative (Negative) Urine Nitrite Negative (Negative) Urine Bilirubin Negative (Negative) Urine Urobilinogen <2.0 (<2.0) mg/dL Ur Leukocyte Esterase Negative (Negative) Disposition Clinical Impression: Nausea and vomiting Disposition: HOME SELF-CARE Condition: Stable Instructions (If sedation given, give patient instructions): Acute Nausea and Vomiting (ED) Additional Instructions: Please take prescribed medication as directed. Please follow with primary care. Position to emergency department if symptoms worsen. Prescriptions: Metoclopramide [Reglan] 10 mg PO Q6HR PRN #24 tab PRN Reason: Nausea Is patient prescribed a controlled substance at d/c from ED?: No Referrals: Davy May DO [Primary Care Provider] - 1-2 days Time of Disposition: 06:00
[2018-10-30 18:57] LABS: Basophils # (A) 0.1 k/uL (0-0.2); Basophils % (A) 1 %; Eosinophils # (A) 0.1 k/uL (0-0.7); Eosinophils % (A) 1 %; HCT 48.3 % (39.0-53.0); HGB 16.3 gm/dL (13.0-17.5); Lymphocytes % (A) 10 %; MCHC 33.7 g/dL (31.0-37.0); MCV 86.2 fL (80.0-100.0); Mean Platelet Volume 6.8; Monocytes # (A) 0.4 k/uL (0-1.0); Monocytes % (A) 4 %; Neutrophils # (A) 8.4 k/uL (1.3-7.7); Neutrophils % (A) 84 %; Platelet Count 290 k/uL (150-450); RDW 13.6 % (11.5-15.5); WBC 10.1 k/uL (3.8-10.6)
--- NOTE | 2018-10-30 19:01 | XR ---
EXAMINATION TYPE: XR KUB DATE OF EXAM: 10/30/2018 COMPARISON: 01/26/2018 HISTORY: Nausea and vomiting TECHNIQUE: 2 views upright FINDINGS: There is no sign of intestinal obstruction or pneumoperitoneum. Fecal pattern is normal. Th ere are clips from cholecystectomy. Lung bases are clear. There are calcifications over the lower frederic e left kidney to measure up to 5 mm. IMPRESSION: Nonacute abdomen. Calculi lower pole left kidney unchanged.
[2018-10-30 19:06] LABS: Albumin 4.9 g/dL (3.5-5.0); Calcium 10.2 mg/dL (8.4-10.2); Potassium 4.3 mmol/L (3.5-5.1); Total Bilirubin 0.8 mg/dL (0.2-1.3); Total Protein 7.9 g/dL (6.3-8.2)
[2018-10-30] MEDS ORDERED: METOCLOPRAMIDE 5 MG/ML 2 ML VIAL IVP STA (19:47)
[2018-10-30 20:03] VITALS: BP 126/94; PULSE 61; RESP 18
[2018-10-30 20:21] LABS: Appearance,Urine Clear (Clear); Bilirubin,Urine Negative (Negative); Blood,Urine Negative (Negative); Color,Urine Yellow; Glucose,Urine (UA) Negative (Negative); Ketones,Urine Negative (Negative); Leukocyte Esterase,Urine Negative (Negative); Nitrite,Urine Negative (Negative); PH, Urine 7.5 (5.0-8.0); Protein,Urine Trace (Negative); Urobilinogen,Urine <2.0 mg/dL (<2.0)
--- NOTE | 2018-10-31 06:01 | CDI ---
Documentation Clarification OP Dear Reddy HILLMAN, JAMES Please provide clinical impression. Thank you, Alessia Hardy Change Management Director If you have any questions, please contact Sleeve Separator at [phone] [facility]
== END 2018-10-30 21:12 | disposition home or self-care (01) ==
LOC: EC 17:45
DX: R11.2 Nausea with vomiting, unspecified (principal); K21.9 Gastro-esophageal reflux disease without esophagitis; I10 Essential (primary) hypertension; E07.9 Disorder of thyroid, unspecified; F41.9 Anxiety disorder, unspecified; G47.30 Sleep apnea, unspecified; Z99.89 Dependence on other enabling machines and devices; Z90.49 Acquired absence of other specified parts of digestive tract; Z79.890 Hormone replacement therapy; Z79.899 Other long term (current) drug therapy; Z88.5 Allergy status to narcotic agent; Z88.8 Allergy status to other drugs, medicaments and biological substances
CPT/HCPCS: 36415; 80053; 82150; 83690; 85025; 81003; 74018; 99284; 96374; 96375 ×2; 96361 ×2; J2765; J2405; C9113

== ENCOUNTER 2019-10-16 09:23 | Day surgery (SDC) | payer BC, OTHER ==
[2019-10-10 09:10] VITALS: BMI 32.5
[~2019-10-16 09:23] MED LIST changes: -DEXAMETHASONE SOD PHOSPHATE 10 MG/ML 1 ML VIAL IV ONE; -LACTATED RINGERS 1,000 ML IV SCH; -LIDOCAINE 1% 20 ML VIAL (10MG/ML) FOR IV START INTRADERMA PRN; -MIDAZOLAM 2 MG/2 ML VIAL IV PRN; -MORPHINE SULFATE 4 MG/ML SYRINGE IVP PRN; -ONDANSETRON 4 MG/2 ML VIAL IVP ONE; -Pre Op ABX Message 1 EACH MISC MISCELLANE ONE; -SCOPOLAMINE 1.5MG/72HR PATCH TRANSDERM ONE; +SODIUM CHLORIDE 0.9% 1,000 ML IV SCH
[2019-10-16 10:25] VITALS: RESP 16; TEMP 98
[2019-10-16] MEDS ORDERED: SODIUM CHLORIDE 0.9% 500 ML 500 ML IV ONE (10:27)
[2019-10-16 12:28] VITALS: BP 137/83; PULSE 58
--- NOTE | 2019-12-05 08:52 | CE ---
CARDIAC ELECTROPHYSIOLOGY REPORT Tilt-table test and a 12-lead EKG. A 12-lead ECG shows sinus rhythm with normal cardiac intervals. Tilt table test per protocol, baseline blood pressure 135/87 mmHg. Baseline heart rate 60 beats per minute. The patient is tilted upright at an angle of 70 degrees per protocol. He became dizzy and curtis, but he had no syncope. No dizziness. His heart rate and blood pressure remained stable without any significant change. He was laid supine at the end of the procedure. IMPRESSION: Patient with recurrent episodes of loss of consciousness. When he was completely curtis and passes out briefly with normal heart rate and blood pressure response to upright tilting. MMODL / IJN: [id number] /
== END 2019-10-16 12:31 | disposition home or self-care (01) ==
LOC: CATHEP 09:23
PROVIDERS: ATTEND Internal Medicine Clinical Cardiac Electrophysiology
DX: R55 Syncope and collapse (principal); I10 Essential (primary) hypertension; I73.9 Peripheral vascular disease, unspecified; Z88.5 Allergy status to narcotic agent; Z79.890 Hormone replacement therapy; Z79.899 Other long term (current) drug therapy
CPT/HCPCS: 93660

== ENCOUNTER 2019-11-04 11:13 | Day surgery (SDC) | payer BC, OTHER ==
[~2019-11-04 11:13] MED LIST changes: +LACTATED RINGERS 1,000 ML IV SCH; -SODIUM CHLORIDE 0.9% 1,000 ML IV SCH
[2019-11-04 11:30] VITALS: TEMP 98
[2019-11-04] MEDS ORDERED: LIDOCAINE 1% (10MG/ML) FOR IV START INTRADERMA ONE (11:48)
[2019-11-04] MEDS ORDERED: ONDANSETRON 4 MG/2 ML VIAL IVP ONE (11:48)
[2019-11-04] MEDS ORDERED: ONDANSETRON 4 MG/2 ML VIAL ONE (11:49)
[2019-11-04] MEDS ORDERED: LIDOCAINE 1% INJ 10MG/ML (20 ML MDV) ONE (11:53)
[2019-11-04] MEDS ORDERED: PROPOFOL 10 MG/ML 20 ML VIAL IV ONE (11:53)
--- NOTE | 2019-11-04 12:28 | P.PCN ---
Date of Procedure: 11/04/19 Description of Procedure: BRIEF HISTORY: Patient is a 64-year-old male presenting for outpatient colonoscopy for evaluation of diarrhea. Patient reports last colonoscopy 7 years ago. He has problems with chronic diarrhea. He is seen in the GI clinic, some improvement with dietary modifications. PROCEDURE PERFORMED: Colonoscopy with polypectomy and biopsy. PREOPERATIVE DIAGNOSIS: Diarrhea, last colonoscopy reported a 7 years ago. ESTIMATED BLOOD LOSS: Minimal. IV sedation per Anesthesia. PROCEDURE: After informed consent was obtained, the patient, was brought into the endoscopy unit. IV sedation was administered by Anesthesia under continuous monitoring. Digital rectal examination was normal. Initially the Olympus CF-190 flexible video colonoscope was then inserted in the rectum, gradually advanced into the cecum without any difficulty. Careful examination was performed as the scope was gradually being withdrawn. Ileocecal valve and the appendiceal orifice were visualized and appeared normal. Prep was excellent. Mucosa of the cecum, ascending colon, transverse colon, descending colon, sigmoid colon, and rectum appeared normal. Diminutive 3 mm polyp removed with cold forcep polypectomy from the ascending colon. A few scattered diverticula noted in the sigmoid colon. Random biopsies taken of a normal-appearing terminal ileum and the right and left colon the setting of diarrhea. Retroflexion was performed in the rectum and no lesions were seen. The patient tolerated the procedure well. IMPRESSION: Diminutive ascending colon polyp removed with cold forcep polypectomy. Mild sigmoid diverticulosis. Random biopsies taken of the right colon, left colon and terminal ileum due to diarrhea/altered bowel function. RECOMMENDATIONS: Findings of this examination were discussed with the patient and his family. Okay to resume diet. Okay to resume medications. Await pathology from biopsies and polypectomy. Follow-up in the GI clinic as previously scheduled. Would recommend a repeat colonoscopy in 7 years for personal history of colon polyps, pending pathology.
[2019-11-04 12:47] VITALS: BP 131/85; PULSE 58; RESP 18
== END 2019-11-04 12:58 | disposition home or self-care (01) ==
LOC: ORWHC2ENDO 11:13
PROVIDERS: ATTEND Internal Medicine
DX: D12.2 Benign neoplasm of ascending colon (principal); K57.30 Diverticulosis of large intestine without perforation or abscess without bleeding; K52.9 Noninfective gastroenteritis and colitis, unspecified; I10 Essential (primary) hypertension; J45.909 Unspecified asthma, uncomplicated; G47.33 Obstructive sleep apnea (adult) (pediatric); E07.9 Disorder of thyroid, unspecified; G43.909 Migraine, unspecified, not intractable, without status migrainosus; K21.9 Gastro-esophageal reflux disease without esophagitis; Z88.2 Allergy status to sulfonamides; Z88.5 Allergy status to narcotic agent; Z79.890 Hormone replacement therapy; Z79.899 Other long term (current) drug therapy
CPT/HCPCS: 88305; 45380; J2405; J2001; J2704

== ENCOUNTER → 2020-01-26 | Outpatient (CLI) | payer BC, OTHER ==
--- NOTE | 2020-01-26 12:34 | US ---
EXAMINATION TYPE: US kidneys/renal and bladder DATE OF EXAM: 01/26/2020 COMPARISON: US, CT 2018. CLINICAL HISTORY: R94.4 abnormal results of kidney function studies. EXAM MEASUREMENTS: Right Kidney: 11.5 x 4.9 x 5.6 cm Left Kidney: 11.5 x 4.9 x 5.7 cm Post Void Residual Volume: 7.9 mL Right Kidney: mid lateral cortical cyst seen = 0.8 x 0.6 x 0.5cm; lower pole vascular wall calcificat ions noted as hyperechoic, parallel lines. Left Kidney: lower pole stone seen = 0.5 x 0.3 x 0.3cm; vascular wall calcifications seen mid lower cortex; mid cortical cyst seen = 0.5 x 0.4 x 0.5cm Bladder: partially filled Bilateral Jets seen: yes Normal Post Void Residual: yes, and prominent prostate gland is noted. There is no evidence for hydronephrosis at this point in time. Few tiny simple appearing thin-walled subcentimeter cysts bilaterally are present. The urinary bladder is greatly distended. Bilateral ure teral jets are seen. IMPRESSION: No hydronephrosis noted bilaterally. Stable 5 mm Nonobstructing calculus lower pole of th e left kidney redemonstrated.
== END | disposition home or self-care (01) ==
LOC: RADUSWWP 10:58
PROVIDERS: ATTEND Family Medicine
DX: N20.0 Calculus of kidney (principal)
CPT/HCPCS: 76770

== ENCOUNTER → 2020-03-05 | Outpatient (CLI) | payer BC, OTHER ==
[2020-03-05 19:27] LABS: African American GFR (CKD) 56.2 (60.0-200.0); Albumin 4.6 g/dL (3.80-4.90); Albumin/Globulin Ratio 2.19 (1.60-3.17); Anion Gap 8.1 mmol/L (4.00-12.00); BUN/Creat Ratio 13.33 Ratio (12.00-20.00); Calcium 9.7 mg/dL (8.7-10.3); Carbon Dioxide 26.9 mmol/L (21.6-31.8); Globulin 2.1 g/dL (1.6-3.3); Non-African American GFR(CKD) 48.5 (60.0-200.0); Total Bilirubin 1.2 mg/dL (0.2-1.2); Total Protein 6.7 g/dL (6.2-8.2)
== END | disposition home or self-care (01) ==
LOC: LABWHC1 11:58
PROVIDERS: ATTEND Physician Assistant
DX: G89.4 Chronic pain syndrome (principal)
CPT/HCPCS: 36415; 80053

== ENCOUNTER → 2020-03-08 | Outpatient (CLI) | payer BC, OTHER ==
--- NOTE | 2020-03-09 00:42 | MR ---
EXAMINATION TYPE: MR lumbar spine wo con DATE OF EXAM: 03/08/2020 COMPARISON: None HISTORY: LBP, hx fractured tailbone Multiplanar multiecho imaging of the lumbar spine was performed without contrast. Coccyx is not included on the exam. The lumbar vertebra have normal alignment. There is transitional S1-S2 vertebra. There is mild decreased signal in the disks in the lower lumbar spine. There is no co mpression fracture. I see no focal bone destruction. There is small posterior mild disc bulge at L5-S 1. There is mild hypertrophic facet arthropathy at L5-S1. There is no significant spinal stenosis. Th ere is developmentally adequate spinal canal. There is no paraspinal mass. The visualized sacroiliac joints appear intact. The neural foramina are fairly well-maintained. IMPRESSION: Mild posterior disc herniation centrally at L5-S1. No significant spinal stenosis. No fracture seen.
== END | disposition home or self-care (01) ==
LOC: RADMRIMAIN 17:42
PROVIDERS: ATTEND Anesthesiology Pain Medicine
DX: M51.27 Other intervertebral disc displacement, lumbosacral region (principal)
CPT/HCPCS: 72148

== ENCOUNTER 2020-05-21 10:29 | Emergency (ER) | payer BC, OTHER ==
--- NOTE | 2020-05-21 11:19 | ED ---
Abdominal Pain HPI - General Chief Complaint: Abdominal Pain Stated Complaint: Abd pain Time Seen by Provider: 05/21/20 10:46 Source: patient, EMS Mode of arrival: EMS Limitations: no limitations - History of Present Illness Initial Comments: 64-year-old male presents to emergency Department chief complaint of abdominal pain. States on May 15 he developed headache with occasional nausea and some vomiting. States since then, his symptoms have progressed and now he is also developed right lower quadrant abdominal pain that occasionally radiates to his right testicle. However, he denies any testicular swelling or erythema. Denies any urinary infectious or obstructive urinary symptoms. States he has decreased appetite and also having some diarrhea as well. Does report chills but no fevers. States he went to the urgent care earlier today and they advised him to come to the emergency department to rule out a possible appendicitis. - Related Data Home Medications Medication Instructions Recorded Confirmed Sertraline HCl [Zoloft] 200 mg PO HS 03/29/15 05/21/20 Doxazosin [Cardura] 4 mg PO HS 01/27/18 05/21/20 Topiramate [Topamax] 50 mg PO HS 01/27/18 05/21/20 Levothyroxine Sodium [Synthroid] 100 mcg PO HS 10/30/18 05/21/20 Pantoprazole Sodium [Protonix] 40 mg PO HS 10/30/18 05/21/20 Butalb/Acetaminophen/Caffeine 1 cap PO DAILY PRN 05/21/20 05/21/20 [Fioricet 50-300-40 mg Capsule] Fluticasone Propionate 44 Mcg 1 puff INHALATION RT-DAILY PRN 05/21/20 05/21/20 [Flovent 44 Mcg Inhaler (Mhu)] Pramipexole [Mirapex] 1 mg PO HS 05/21/20 05/21/20 lisinopriL [Zestril] 10 mg PO HS 05/21/20 05/21/20 Previous Rx's Medication Instructions Recorded Ciprofloxacin HCl [Cipro] 500 mg PO Q12HR #20 tablet 05/21/20 Ondansetron Odt [Zofran Odt] 4 mg PO Q8HR PRN #20 tab 05/21/20 metroNIDAZOLE [Flagyl] 500 mg PO TID #30 tab 05/21/20 Allergies Allergy/AdvReac Type Severity Reaction Status Date / Time meperidine HCl [From Demerol] Allergy Rash/Hives Verified 05/21/20 11:58 silver sulfadiazine Allergy Itching, Verified 05/21/20 11:58 [From Silvadene] KIM SKIN Review of Systems ROS Statement: Those systems with pertinent positive or pertinent negative responses have been documented in the HPI. ROS Other: All systems not noted in ROS Statement are negative. Past Medical History Past Medical History: Asthma, GERD/Reflux, GI Bleed, Hypertension, Pulmonary Embolus (PE), Sleep Apnea/CPAP/BIPAP, Thyroid Disorder Additional Past Medical History / Comment(s): migraines, see Dr Cifuentes H&P, sleep apnea resolved with wt loss, diarrhea, diverticulitis, has been passing out History of Any Multi-Drug Resistant Organisms: C-DIFF Date of last positivie culture/infection: 04/19/2016 MDRO Source:: STOOL Past Surgical History: Back Surgery, Cholecystectomy, Hernia Repair, Orthopedic Surgery Additional Past Surgical History / Comment(s): RT HAND FB REMOVAL. CERVICAL SPINAL FUSION X3. SINUS RECONSTRUCTIVE SURGERY - rt shoulder rotator cuff Past Anesthesia/Blood Transfusion Reactions: Previous Problems w/ Anesthesia, Motion Sickness, Postoperative Nausea & Vomiting (PONV) Additional Past Anesthesia/Blood Transfusion Reaction / Comment(s): AWAKES W/ BEING UNABLE TO BREATHE; DRY HEAVES/vomiting SEVERE, NO RX HELPED. "He will pass out of vomits too much", BP dropped "way down" Past Psychological History: Anxiety Smoking Status: Never smoker Past Alcohol Use History: None Reported Past Drug Use History: None Reported - Past Family History Mother Family Medical History: No Reported History General Exam Limitations: no limitations General appearance: alert, in no apparent distress, obese Head exam: Present: atraumatic, normocephalic, normal inspection Eye exam: Present: normal appearance, PERRL, EOMI Pupils: Present: normal accommodation ENT exam: Present: normal exam, normal oropharynx, mucous membranes moist, TM's normal bilaterally, normal external ear exam Neck exam: Present: normal inspection, full ROM. Absent: tenderness Respiratory exam: Present: normal lung sounds bilaterally. Absent: respiratory distress, wheezes, rales, rhonchi, stridor, chest wall tenderness, accessory muscle use Cardiovascular Exam: Present: regular rate, normal rhythm, normal heart sounds GI/Abdominal exam: Present: soft, tenderness (Tender to even light touch in the right lower quadrant. Positive McBurney point.). Absent: distended, guarding exam: Present: normal inspection, testicular tenderness (Mild right-sided). Absent: urethral discharge, scrotal swelling, vertical testicular lie Extremities exam: Present: normal inspection, full ROM, normal capillary refill. Absent: tenderness Back exam: Present: normal inspection, full ROM. Absent: tenderness, CVA tenderness (R), CVA tenderness (L) Neurological exam: Present: alert, oriented X3 Psychiatric exam: Present: normal affect, normal mood Skin exam: Present: warm, dry, intact, normal color Course Vital Signs 05/21/20 05/21/20 05/21/20 10:33 12:30 14:00 Temperature 98.5 F 98.4 F Pulse Rate 59 L 57 L 65 Respiratory 18 20 20 Rate Blood Pressure 151/90 149/93 135/95 O2 Sat by Pulse 100 99 96 Oximetry Medical Decision Making - Medical Decision Making 64-year-old male presented emergency Department with a chief complaint of a bdominal pain. On physical examination, right lower quadrant abdominal tenderness. No signs of erythema or swelling of the testicles. CBC unremarkable. CMP reveals elevated creatinine likely secondary to decreased fluid intake as well as diarrhea. Patient was given antiemetics and analgesia. UA is unremarkable. CT abdomen and pelvis reveals acute sigmoid diverticulitis. I was going to initially give the patient Augmentin but he has history of C. diff following antibiotics. Patient is requesting treatment involving Flagyl. Patient will be started on Flagyl and Cipro. Also discharged with Zofran. Given Tylenol 3 starter pack. Advised about a specific diverticulitis diet to follow. Strict return parameters were thoroughly discussed with patient was understanding and agreeable. Case discussed with Dr. Morales. - Lab Data Result diagrams: 05/21/20 11:09 05/21/20 11:09 Lab Results 05/21/20 05/21/20 05/21/20 Range/Units 11:09 11:09 11:09 WBC 7.1 (3.8-10.6) k/uL RBC 5.43 (4.30-5.90) m/uL Hgb 16.7 (13.0-17.5) gm/dL Hct 48.4 (39.0-53.0) % MCV 89.2 (80.0-100.0) fL MCH 30.8 (25.0-35.0) pg MCHC 34.6 (31.0-37.0) g/dL RDW 13.1 (11.5-15.5) % Plt Count 219 (150-450) k/uL MPV 8.1 Neutrophils % 70 % Lymphocytes % 21 % Monocytes % 5 % Eosinophils % 3 % Basophils % 0 % Neutrophils # 5.0 (1.3-7.7) k/uL Lymphocytes # 1.5 (1.0-4.8) k/uL Monocytes # 0.4 (0-1.0) k/uL Eosinophils # 0.2 (0-0.7) k/uL Basophils # 0.0 (0-0.2) k/uL Sodium 138 (137-145) mmol/L Potassium 4.9 (3.5-5.1) mmol/L Chloride 105 (98-107) mmol/L Carbon Dioxide 23 (22-30) mmol/L Anion Gap 10 mmol/L BUN 18 (9-20) mg/dL Creatinine 1.42 H (0.66-1.25) mg/dL Est GFR (CKD-EPI)AfAm 60 (>60 ml/min/1.73 sqM) Est GFR (CKD-EPI)NonAf 52 (>60 ml/min/1.73 sqM) Glucose 103 H (74-99) mg/dL Calcium 9.5 (8.4-10.2) mg/dL Total Bilirubin 0.8 (0.2-1.3) mg/dL AST 24 (17-59) U/L ALT 13 (4-49) U/L Alkaline Phosphatase 71 (38-126) U/L Total Protein 7.4 (6.3-8.2) g/dL Albumin 4.5 (3.5-5.0) g/dL Lipase 114 (23-300) U/L Urine Color Yellow Urine Appearance Clear (Clear) Urine pH 5.0 (5.0-8.0) Ur Specific Totz 1.019 (1.001-1.035) Urine Protein Trace H (Negative) Urine Glucose (UA) Negative (Negative) Urine Ketones Negative (Negative) Urine Blood Negative (Negative) Urine Nitrite Negative (Negative) Urine Bilirubin Negative (Negative) Urine Urobilinogen <2.0 (<2.0) mg/dL Ur Leukocyte Esterase Negative (Negative) Disposition Clinical Impression: Diverticulitis of sigmoid colon, Nausea vomiting and diarrhea Disposition: HOME SELF-CARE Condition: Stable Instructions (If sedation given, give patient instructions): Diverticulitis (ED), Diverticulitis Diet (ED) Additional Instructions: Follow the diet as prescribed. Take prescribed medication as directed. Return to emergency department if symptoms worsen. Prescriptions: Amoxicillin/Potassium Clav [Augmentin 875-125 Tablet] 1 tab PO Q12HR #20 tab Ciprofloxacin HCl [Cipro] 500 mg PO Q12HR #20 tablet metroNIDAZOLE [Flagyl] 500 mg PO TID #30 tab Is patient prescribed a controlled substance at d/c from ED?: No Referrals: Davy May DO [Primary Care Provider] - 1-2 days Time of Disposition: 14:24
[2020-05-21 11:54] LABS: Appearance,Urine Clear (Clear); Bilirubin,Urine Negative (Negative); Blood,Urine Negative (Negative); Color,Urine Yellow; Glucose,Urine (UA) Negative (Negative); Ketones,Urine Negative (Negative); Leukocyte Esterase,Urine Negative (Negative); Nitrite,Urine Negative (Negative); Protein,Urine Trace (Negative); Specific Gravity,Urine 1.019 (1.001-1.035); Urobilinogen,Urine <2.0 mg/dL (<2.0)
[2020-05-21 12:31] VITALS: RESP 20
[2020-05-21 12:40] LABS: Basophils % (A) 0 %; Eosinophils # (A) 0.2 k/uL (0-0.7); Eosinophils % (A) 3 %; HCT 48.4 % (39.0-53.0); HGB 16.7 gm/dL (13.0-17.5); Lymphocytes # (A) 1.5 k/uL (1.0-4.8); Lymphocytes % (A) 21 %; MCH 30.8 pg (25.0-35.0); MCHC 34.6 g/dL (31.0-37.0); MCV 89.2 fL (80.0-100.0); Mean Platelet Volume 8.1; Monocytes # (A) 0.4 k/uL (0-1.0); Monocytes % (A) 5 %; Neutrophils % (A) 70 %; Platelet Count 219 k/uL (150-450); RBC 5.43 m/uL (4.30-5.90); RDW 13.1 % (11.5-15.5); WBC 7.1 k/uL (3.8-10.6)
[2020-05-21 13:06] LABS: Albumin 4.5 g/dL (3.5-5.0); Calcium 9.5 mg/dL (8.4-10.2); Potassium 4.9 mmol/L (3.5-5.1); Total Bilirubin 0.8 mg/dL (0.2-1.3); Total Protein 7.4 g/dL (6.3-8.2)
[2020-05-21] MEDS ORDERED: MORPHINE SULFATE 4 MG/ML SYRINGE IVP STA (13:11)
[2020-05-21] MEDS ORDERED: ONDANSETRON 4 MG/2 ML VIAL IVP STA (13:20)
--- NOTE | 2020-05-21 13:48 | CT ---
EXAMINATION TYPE: CT abdomen pelvis w con DATE OF EXAM: 05/21/2020 COMPARISON: 01/27/2018 INDICATION: Abd pain DLP: 1330.1 mGycm, Automated exposure control for dose reduction was used. CONTRAST: 80 mL of Isovue 300. Study performed without Oral Contrast TECHNIQUE: Axial images were obtained from above the diaphragm to the pubic rami in the axial plane a t 5 mm thick sections. Reconstructed images are reviewed on the computer in the coronal plane. FINDINGS: Limited CT sections are obtained the lung bases. The lung bases are clear. CT ABDOMEN: Liver: Normal Spleen: Normal Pancreas: Normal Adrenal glands: The adrenal glands are normal. Gallbladder: Surgically absent Kidneys: No masses are evident. No hydronephrosis is present. No cysts are present. There is a 0.4 and 0.5 cm nonobstructing renal stone at the inferior pole left kidney. Aorta: Vascular calcification is within the aorta. Some fusiform prominence of the infrarenal abdomi nal aorta measuring 3.1 cm AP is present extending to the bifurcation. Inferior vena cava: Normal. CT PELVIS: Diverticular changes are within the redundant sigmoid colon. Inflammatory changes are adjacent to the mid sigmoid compatible with colon acute diverticulitis. No abscess formation or free air is evident. This study is performed without oral contrast limiting bowel evaluation. Appendix: Not identified. No suspicious inflammatory changes or dilated tubular structures are eviden t. Urinary bladder: Normal. Genitourinary structures: Prostate is very prominent. Osseous structures: No suspicious lytic or sclerotic lesions. IMPRESSIONS: 1. Acute diverticulitis mid sigmoid colon. 2. Nonobstructing inferior pole renal stones.
[2020-05-21] MEDS ORDERED: AMOXIC-POT CLAV 875-125MG 1 EACH TAB PO STA (14:21)
[2020-05-21] MEDS ORDERED: ACET/COD 300 MG/30 MG STARTER PACK 6 TAB BTL PO STA (14:33)
[2020-05-21 20:02] VITALS: BP 138/82; PULSE 62; TEMP 98.9
== END 2020-05-21 16:45 | disposition home or self-care (01) ==
LOC: EC 10:29
DX: K57.32 Diverticulitis of large intestine without perforation or abscess without bleeding (principal); K21.9 Gastro-esophageal reflux disease without esophagitis; J45.909 Unspecified asthma, uncomplicated; I10 Essential (primary) hypertension; G47.30 Sleep apnea, unspecified; F41.9 Anxiety disorder, unspecified; Z86.711 Personal history of pulmonary embolism; Z79.51 Long term (current) use of inhaled steroids; Z79.899 Other long term (current) drug therapy; Z90.49 Acquired absence of other specified parts of digestive tract
CPT/HCPCS: 36415; 80053; 83690; 85025; 81003; 74177; 99284; 96374; 96375; J2270; J2405; Q9967

== ENCOUNTER 2020-06-09 16:02 | Emergency (ER) | payer BC, OTHER ==
--- NOTE | 2020-06-09 16:41 | ED ---
General Adult HPI - General Source: patient, RN notes reviewed Mode of arrival: ambulatory Limitations: no limitations <Jagdish Snyder - Last Filed: 06/09/20 16:40> <Channing Daly - Last Filed: 06/09/20 17:41> <Surya Live - Last Filed: 06/09/20 20:15> - General Stated complaint: N&V Time Seen by Provider: 06/09/20 16:40 - History of Present Illness Initial comments: 64-year-old male presents emergency Department chief complaint of nausea vomiting abdominal pain, dark tarry stools. Patient states he had recent hospitalization for diverticulitis. Patient states he does not feel well. Patient denies any blood thinners she's had a mild headache. (Jagdish Snyder) 64-year-old male with a past medical history of asthma, GERD, GI bleed, hypertension, PE, migraines is not on blood thinners presents to the emergency room for a chief complaint of black stool. Patient reports that he has black stools that started 2 days ago that he is concerned could be blood. He states that he is also having lower abdominal pain worse on the right side as well as nausea and vomiting. This has been ongoing for 2 days as well. He does not have any fevers. Patient states that he was recently diagnosed with divert iculitis through the emergency room. He states the symptoms did improve he was on the antibiotics however he feels that they may have come back. Patient has no other complaints at this time including shortness of breath, chest pain, nausea or vomiting, headache, or visual changes. (Channing Daly) Patient care is signed out to me by previous shift physician assistant operations manager, Channing Fontaine. Briefly, patient is a 64-year-old male who completed treatment for acute diverticulitis. Presents emergency department for abdominal pain and groin pain. Labs are unremarkable. Plan at sign out was to follow-up with CT results. Patient was evaluated at bedside at 8:10 PM. He complains of nausea vomiting and right groin pain. Patient has palpatory tenderness at his right inguinal area. There is no palpatory hernia. His testicles are benign. CT of the abdomen and pelvis were unremarkable for any acute processes. Shows resolution of diverticulitis. Patient states he's been having approximately 3 days of diarrhea. Patient given prescription for Zofran. Is advised to follow- up with his primary care physician for outpatient management of diarrhea should his symptoms not resolve. Patient is agreeable to plan. (Surya Live) - Related Data Home Medications Medication Instructions Recorded Confirmed Sertraline HCl [Zoloft] 200 mg PO HS 03/29/15 06/09/20 Doxazosin [Cardura] 4 mg PO HS 01/27/18 06/09/20 Topiramate [Topamax] 50 mg PO HS 01/27/18 06/09/20 Levothyroxine Sodium [Synthroid] 100 mcg PO HS 10/30/18 06/09/20 Pantoprazole Sodium [Protonix] 40 mg PO HS 10/30/18 06/09/20 Butalb/Acetaminophen/Caffeine 1 cap PO DAILY PRN 05/21/20 06/09/20 [Fioricet 50-300-40 mg Capsule] Fluticasone Propionate 44 Mcg 1 puff INHALATION RT-DAILY PRN 05/21/20 06/09/20 [Flovent 44 Mcg Inhaler (Mhu)] Pramipexole [Mirapex] 1 mg PO HS 05/21/20 06/09/20 lisinopriL [Zestril] 10 mg PO HS 05/21/20 06/09/20 Previous Rx's Medication Instructions Recorded Ondansetron Odt [Zofran Odt] 4 mg PO Q8HR PRN #20 tab 05/21/20 Ondansetron Odt [Zofran Odt] 4 mg PO Q8HR PRN #24 tab 06/09/20 Allergies Allergy/AdvReac Type Severity Reaction Status Date / Time meperidine HCl [From Demerol] Allergy Rash/Hives Verified 06/09/20 18:07 silver sulfadiazine Allergy Itching, Verified 06/09/20 18:07 [From Silvadene] KIM SKIN Review of Systems ROS Other: All systems not noted in ROS Statement are negative. <Jagdish Snyder - Last Filed: 06/09/20 16:40> ROS Other: All systems not noted in ROS Statement are negative. <Channing Daly - Last Filed: 06/09/20 17:41> ROS Other: All systems not noted in ROS Statement are negative. <Maria TSurya D - Last Filed: 06/09/20 20:15> ROS Statement: Those systems with pertinent positive or pertinent negative responses have been documented in the HPI. Past Medical History Past Medical History: Asthma, GERD/Reflux, GI Bleed, Hypertension, Pulmonary Embolus (PE), Sleep Apnea/CPAP/BIPAP, Thyroid Disorder Additional Past Medical History / Comment(s): migraines, see Dr Cifuentes H&P, sleep apnea resolved with wt loss, diarrhea, diverticulitis, has been passing out History of Any Multi-Drug Resistant Organisms: C-DIFF Date of last positivie culture/infection: 04/19/2016 MDRO Source:: STOOL Past Surgical History: Back Surgery, Cholecystectomy, Hernia Repair, Orthopedic Surgery Additional Past Surgical History / Comment(s): RT HAND FB REMOVAL. CERVICAL SPINAL FUSION X3. SINUS RECONSTRUCTIVE SURGERY - rt shoulder rotator cuff Past Anesthesia/Blood Transfusion Reactions: Previous Problems w/ Anesthesia, Motion Sickness, Postoperative Nausea & Vomiting (PONV) Additional Past Anesthesia/Blood Transfusion Reaction / Comment(s): AWAKES W/ BEING UNABLE TO BREATHE; DRY HEAVES/vomiting SEVERE, NO RX HELPED. "He will pass out of vomits too much", BP dropped "way down" Past Psychological History: Anxiety Smoking Status: Never smoker Past Alcohol Use History: None Reported Past Drug Use History: None Reported - Past Family History Mother Family Medical History: No Reported History <Jagdish Snyder - Last Filed: 06/09/20 16:40> General Exam Limitations: no limitations <Jagdish Snydre - Last Filed: 06/09/20 16:40> General appearance: alert, in no apparent distress Head exam: Present: atraumatic Eye exam: Present: normal appearance, PERRL, EOMI. Absent: scleral icterus, c onjunctival injection, periorbital swelling ENT exam: Present: normal exam, mucous membranes moist Neck exam: Present: normal inspection. Absent: tenderness, meningismus, lymphadenopathy Respiratory exam: Present: normal lung sounds bilaterally. Absent: respiratory distress, wheezes, rales, rhonchi, stridor Cardiovascular Exam: Present: regular rate, normal rhythm, normal heart sounds. Absent: systolic murmur, diastolic murmur, rubs, gallop, clicks GI/Abdominal exam: Present: soft, tenderness (minimal generalized abdominal tenderness worse RLQ), normal bowel sounds. Absent: distended, guarding, rebound, rigid Rectal exam: Present: normal inspection. Absent: bloody stool, hemorrhoids, mass <Channing Daly - Last Filed: 06/09/20 17:41> Course Vital Signs 06/09/20 16:36 Temperature 98 F Pulse Rate 64 Respiratory 18 Rate Medical Decision Making - Lab Data Result diagrams: 06/09/20 16:55 06/09/20 16:55 <Channing Daly - Last Filed: 06/09/20 17:41> - Lab Data Result diagrams: 06/09/20 16:55 06/09/20 16:55 <Surya Live - Last Filed: 06/09/20 20:15> - Medical Decision Making Vitals are stable. Patient is well appearing. CBC is unremarkable. CMP does show a slight elevation in creatinine however this is likely patient's baseline. (Channing Daly) - Lab Data Lab Results 06/09/20 06/09/20 06/09/20 Range/Units 16:55 16:55 16:55 WBC 6.3 (3.8-10.6) k/uL RBC 5.78 (4.30-5.90) m/uL Hgb 17.5 (13.0-17.5) gm/dL Hct 50.7 (39.0-53.0) % MCV 87.7 (80.0-100.0) fL MCH 30.2 (25.0-35.0) pg MCHC 34.4 (31.0-37.0) g/dL RDW 13.2 (11.5-15.5) % Plt Count 264 (150-450) k/uL MPV 7.0 Neutrophils % 61 % Lymphocytes % 29 % Monocytes % 7 % Eosinophils % 2 % Basophils % 1 % Neutrophils # 3.8 (1.3-7.7) k/uL Lymphocytes # 1.8 (1.0-4.8) k/uL Monocytes # 0.4 (0-1.0) k/uL Eosinophils # 0.1 (0-0.7) k/uL Basophils # 0.0 (0-0.2) k/uL PT (9.0-12.0) sec INR (<1.2) APTT (22.0-30.0) sec Sodium 139 (137-145) mmol/L Potassium 4.4 (3.5-5.1) mmol/L Chloride 100 (98-107) mmol/L Carbon Dioxide 27 (22-30) mmol/L Anion Gap 12 mmol/L BUN 17 (9-20) mg/dL Creatinine 1.38 H (0.66-1.25) mg/dL Est GFR (CKD-EPI)AfAm 62 (>60 ml/min/1.73 sqM) Est GFR (CKD-EPI)NonAf 54 (>60 ml/min/1.73 sqM) Glucose 96 (74-99) mg/dL Plasma Lactic Acid Torres 1.2 (0.7-2.0) mmol/L Calcium 10.4 H (8.4-10.2) mg/dL Total Bilirubin 1.2 (0.2-1.3) mg/dL AST 31 (17-59) U/L ALT 27 (4-49) U/L Alkaline Phosphatase 70 (38-126) U/L Total Protein 8.4 H (6.3-8.2) g/dL Albumin 5.2 H (3.5-5.0) g/dL Lipase 132 (23-300) U/L Stool Occult Blood (Negative) Coronavirus (PCR) (Not Detectd) Blood Type Blood Type Recheck Bld Type Recheck Status Antibody Screen Spec Expiration Date 06/09/20 06/09/20 06/09/20 Range/Units 16:55 17:46 17:46 WBC (3.8-10.6) k/uL RBC (4.30-5.90) m/uL Hgb (13.0-17.5) gm/dL Hct (39.0-53.0) % MCV (80.0-100.0) fL MCH (25.0-35.0) pg MCHC (31.0-37.0) g/dL RDW (11.5-15.5) % Plt Count (150-450) k/uL MPV Neutrophils % % Lymphocytes % % Monocytes % % Eosinophils % % Basophils % % Neutrophils # (1.3-7.7) k/uL Lymphocytes # (1.0-4.8) k/uL Monocytes # (0-1.0) k/uL Eosinophils # (0-0.7) k/uL Basophils # (0-0.2) k/uL PT 11.6 (9.0-12.0) sec INR 1.1 (<1.2) APTT 23.5 (22.0-30.0) sec Sodium (137-145) mmol/L Potassium (3.5-5.1) mmol/L Chloride (98-107) mmol/L Carbon Dioxide (22-30) mmol/L Anion Gap mmol/L BUN (9-20) mg/dL Creatinine (0.66-1.25) mg/dL Est GFR (CKD-EPI)AfAm (>60 ml/min/1.73 sqM) Est GFR (CKD-EPI)NonAf (>60 ml/min/1.73 sqM) Glucose (74-99) mg/dL Plasma Lactic Acid Otrres (0.7-2.0) mmol/L Calcium (8.4-10.2) mg/dL Total Bilirubin (0.2-1.3) mg/dL AST (17-59) U/L ALT (4-49) U/L Alkaline Phosphatase (38-126) U/L Total Protein (6.3-8.2) g/dL Albumin (3.5-5.0) g/dL Lipase (23-300) U/L Stool Occult Blood Negative (Negative) Coronavirus (PCR) (Not Detectd) Blood Type A Negative Blood Type Recheck A Neg Bld Type Recheck Status No Antibody Screen NEGATIVE Spec Expiration Date 06/12/2020 - 235406/09/20 Range/Units 17:46 WBC (3.8-10.6) k/uL RBC (4.30-5.90) m/uL Hgb (13.0-17.5) gm/dL Hct (39.0-53.0) % MCV (80.0-100.0) fL MCH (25.0-35.0) pg MCHC (31.0-37.0) g/dL RDW (11.5-15.5) % Plt Count (150-450) k/uL MPV Neutrophils % % Lymphocytes % % Monocytes % % Eosinophils % % Basophils % % Neutrophils # (1.3-7.7) k/uL Lymphocytes # (1.0-4.8) k/uL Monocytes # (0-1.0) k/uL Eosinophils # (0-0.7) k/uL Basophils # (0-0.2) k/uL PT (9.0-12.0) sec INR (<1.2) APTT (22.0-30.0) sec Sodium (137-145) mmol/L Potassium (3.5-5.1) mmol/L Chloride (98-107) mmol/L Carbon Dioxide (22-30) mmol/L Anion Gap mmol/L BUN (9-20) mg/dL Creatinine (0.66-1.25) mg/dL Est GFR (CKD-EPI)AfAm (>60 ml/min/1.73 sqM) Est GFR (CKD-EPI)NonAf (>60 ml/min/1.73 sqM) Glucose (74-99) mg/dL Plasma Lactic Acid Torres (0.7-2.0) mmol/L Calcium (8.4-10.2) mg/dL Total Bilirubin (0.2-1.3) mg/dL AST (17-59) U/L ALT (4-49) U/L Alkaline Phosphatase (38-126) U/L Total Protein (6.3-8.2) g/dL Albumin (3.5-5.0) g/dL Lipase (23-300) U/L Stool Occult Blood (Negative) Coronavirus (PCR) Not Detected (Not Detectd) Blood Type Blood Type Recheck Bld Type Recheck Status Antibody Screen Spec Expiration Date Disposition <Jagdish Snyder M - Last Filed: 06/09/20 16:40> <Channing Daly P - Last Filed: 06/09/20 17:41> Is patient prescribed a controlled substance at d/c from ED?: No Time of Disposition: 20:15 <Surya Live - Last Filed: 06/09/20 20:15> Clinical Impression: Groin pain, Vomiting, Gastroenteritis Disposition: HOME SELF-CARE Condition: Fair Instructions (If sedation given, give patient instructions): Acute Diarrhea (ED), Acute Nausea and Vomiting (ED) Prescriptions: Ondansetron Odt [Zofran Odt] 4 mg PO Q8HR PRN #24 tab PRN Reason: Nausea Referrals: Davy May DO [Primary Care Provider] - 1-2 days
[2020-06-09 17:10] LABS: Basophils % (A) 1 %; Eosinophils # (A) 0.1 k/uL (0-0.7); Eosinophils % (A) 2 %; HCT 50.7 % (39.0-53.0); HGB 17.5 gm/dL (13.0-17.5); Lymphocytes # (A) 1.8 k/uL (1.0-4.8); Lymphocytes % (A) 29 %; MCH 30.2 pg (25.0-35.0); MCHC 34.4 g/dL (31.0-37.0); MCV 87.7 fL (80.0-100.0); Monocytes # (A) 0.4 k/uL (0-1.0); Monocytes % (A) 7 %; Neutrophils # (A) 3.8 k/uL (1.3-7.7); Neutrophils % (A) 61 %; Platelet Count 264 k/uL (150-450); RBC 5.78 m/uL (4.30-5.90); RDW 13.2 % (11.5-15.5); WBC 6.3 k/uL (3.8-10.6)
[2020-06-09 17:24] LABS: Albumin 5.2 g/dL (3.5-5.0); Calcium 10.4 mg/dL (8.4-10.2); Potassium 4.4 mmol/L (3.5-5.1); Total Bilirubin 1.2 mg/dL (0.2-1.3); Total Protein 8.4 g/dL (6.3-8.2)
[2020-06-09] MEDS ORDERED: SODIUM CHLORIDE 0.9% 1,000 ML IV STA (17:35)
[2020-06-09] MEDS ORDERED: PANTOPRAZOLE 40 MG/10 ML VIAL IVP STA (17:42)
[2020-06-09] MEDS ORDERED: ONDANSETRON 4 MG/2 ML VIAL IVP STA (18:02)
[2020-06-09] MEDS ORDERED: HYDROmorphone 0.5 MG/0.5 ML SYRINGE IVP STA (18:02)
[2020-06-09 18:34] LABS: INR 1.1 (<1.2); Partial Thromboplastin Time 23.5 sec (22.0-30.0); Prothrombin Time 11.6 sec (9.0-12.0)
--- NOTE | 2020-06-09 19:43 | CT ---
EXAMINATION TYPE: CT abdomen pelvis w con DATE OF EXAM: 06/09/2020 COMPARISON: 05/21/2020 HISTORY: abdominal pain, nausea, vomiting CT DLP: 1197.2 mGycm Automated exposure control for dose reduction was used. TECHNIQUE: Helical acquisition of images was performed from the lung bases through the pelvis. CONTRAST: Performed without Oral Contrast and with IV Contrast, patient injected with 80cc mL of Isovue 300. FINDINGS: LUNG BASES: No focal airspace opacity, pleural effusion, or pericardial effusion. LIVER: Normal. BILIARY SYSTEM: Status post cholecystectomy. No biliary ductal dilatation. PANCREAS: Normal. SPLEEN: Normal. ADRENALS: Normal. KIDNEYS: No hydronephrosis bilaterally. Nonobstructing left nephrolithiasis. Too small to characteriz e hypodense lesions bilaterally. BOWEL: No evidence of bowel obstruction or thickening. There is near complete resolution of the infl ammatory stranding associated with the sigmoid colon acute diverticulitis seen on 05/21/2020. Colonic d iverticulosis. PERITONEUM: No pneumoperitoneum. No free fluid. LYMPH NODES: No lymphadenopathy. PELVIS: Normal. VASCULATURE: There is an infrarenal abdominal aortic aneurysm measuring 3.1 cm, unchanged. MUSCULOSKELETAL: Degenerative changes of the spine. IMPRESSION: 1. Near complete resolution of the inflammatory stranding associated with the sigmoid colon acute di verticulitis seen on 05/21/2020. No new or worsening acute diverticulitis or evidence of abscess. 2. Unchanged infrarenal abdominal aortic aneurysm measures 3.1 cm. 3. Nonobstructing left nephrolithiasis.
[2020-06-09] MEDS ORDERED: ONDANSETRON 4 MG ODT STARTER PACK 2 TAB BTL PO STA (20:16)
[2020-06-09 21:03] VITALS: BP 139/78; PULSE 72; RESP 16; TEMP 98.4
== END 2020-06-09 21:03 | disposition home or self-care (01) ==
LOC: EC 16:02
DX: K52.9 Noninfective gastroenteritis and colitis, unspecified (principal); K21.9 Gastro-esophageal reflux disease without esophagitis; J45.909 Unspecified asthma, uncomplicated; I10 Essential (primary) hypertension; G47.30 Sleep apnea, unspecified; F41.9 Anxiety disorder, unspecified; G43.909 Migraine, unspecified, not intractable, without status migrainosus; Z20.822 Contact with and (suspected) exposure to COVID-19; Z86.711 Personal history of pulmonary embolism; Z79.899 Other long term (current) drug therapy; Z79.51 Long term (current) use of inhaled steroids
CPT/HCPCS: 36415; 86900; 86901; 80053; 83605; 83690; 85025; 85610; 85730; 86850; 82272; 87635; 74177; 99284; 96374; 96375 ×2; 96361 ×3; J2405; S0119; C9113; J1170; Q9967

== ENCOUNTER → 2020-11-17 | Outpatient (CLI) | payer BC, OTHER, MEDICARE ==
--- NOTE | 2020-11-17 12:02 | US ---
EXAMINATION TYPE: US carotid duplex BILAT DATE OF EXAM: 11/17/2020 COMPARISON: NONE CLINICAL HISTORY: I12.9 Hypertensive renal disease. Patient stated will have syncopal episodes when r eceives pain medication for spine pain; takes thyroid medication EXAM MEASUREMENTS: RIGHT: Peak Systolic Velocity (PSV) cm/sec ----- Right CCA: 71.4 ----- Right ICA: 69.8 ----- Right ECA: 111.0 ICA/CCA ratio: 0.98 RIGHT: End Diastole cm/sec ----- Right CCA: 23.0 ----- Right ICA: 29.5 ----- Right ECA: 30.1 LEFT: Peak Systolic Velocity (PSV) cm/sec ----- Left CCA: 50.6 ----- Left ICA: 59.0 ----- Left ECA: 72.7 ICA/CCA ratio: 0.86 LEFT: End Diastole cm/sec ----- Left CCA: 22.1 ----- Left ICA: 17.2 ----- Left ECA: 13.3 VERTEBRALS (direction of flow): Right Vertebral: Antegrade Left Vertebral: Antegrade Rhythm: Normal Mild to moderate intimal wall thickening is noted at bilateral carotid bifurcation, but PSV is wnl bi laterally. Incidentally, enlarged bilateral thyroid gland is noted. IMPRESSION: No evidence for hemodynamically significant stenosis. Criteria for Assigning % of Stenosis / Diameter reduction (Estimation based on the indirect measurements of the internal carotid artery velocities (ICA PSV). 1. Normal (no stenosis)=ICA PSV < 125 cm/s: ratio < 2.0: ICA EDV<40 cm/s. 2. Less than 50% stenosis=ICA PSV < 125 cm/s: ratio < 2.0: ICA EDV<40 cm/s. 3. 50 to 69% stenosis=ICA PSV of 125 to 230 cm/s: ration 2.0 ? 4.0: ICA EDV 40-100 cm/s. 4. Greater than 70% stenosis to near occlusion= ICA PSV > 230 cm/s: ratio > 4.0: ICA EDV > 100 cm/s. 5. Near occlusion= ICA PSV velocities may be low or undetectable: variable ratio and ICA EDV. 6. Total occlusion=unable to detect flow.
== END | disposition home or self-care (01) ==
LOC: RADUSWWP 10:59
PROVIDERS: ATTEND Internal Medicine Nephrology
DX: I12.9 Hypertensive chronic kidney disease with stage 1 through stage 4 chronic kidney disease, or unspecified chronic kidney disease (principal); N18.9 Chronic kidney disease, unspecified
CPT/HCPCS: 93880

== ENCOUNTER → 2022-01-05 | Outpatient (CLI) | payer MEDICARE, BC, OTHER ==
--- NOTE | 2022-01-05 15:11 | US ---
EXAMINATION TYPE: US kidneys/renal and bladder DATE OF EXAM: 01/05/2022 COMPARISON: CT 06/09/2020 CLINICAL HISTORY: R31.1 Microhematuria. microscopic hematuria, no symptoms EXAM MEASUREMENTS: Right Kidney: 11.8 x 4.8 x 6.7 cm Left Kidney: 10.8 x 4.6 x 6.1 cm Right Kidney: 0.7 x 0.8 x 0.6cm exophytic cyst Left Kidney: 1.0 x 0.8 x 0.7cm superior pole cyst Bladder: wnl Bilateral Jets seen: Yes There is no evidence for hydronephrosis at this point in time. No nephrolithiasis is seen. No windy s are identified. The urinary bladder is anechoic. Bilateral ureteral jets are seen. IMPRESSION: 1. No evidence of obstructive uropathy. 2. Bilateral renal cysts. 3. 3. Left inferior pole renal calculus seen on prior CT not definitely visualized.
== END | disposition home or self-care (01) ==
LOC: RADUSWWP 14:18
PROVIDERS: ATTEND Urology
DX: N20.0 Calculus of kidney (principal); N28.1 Cyst of kidney, acquired; R31.1 Benign essential microscopic hematuria
CPT/HCPCS: 76770

== ENCOUNTER → 2022-06-15 | Outpatient (CLI) | payer MEDICARE, BC, OTHER ==
--- NOTE | 2022-06-15 11:24 | FL ---
EXAMINATION TYPE: FL UGI air w small bowel DATE OF EXAM: 06/15/2022 10:42 AM COMPARISON: NONE CLINICAL HISTORY: Vomiting 2-3 times per week A total of 129 seconds of fluoroscopic time was utilized during procedure and 33 images obtained. Preliminary film of the abdomen reveals no definite abnormality. Upper GI examination was performed u tilizing the air contrast technique. Barium and effervescent crystals were swallowed without difficu lty or delay. Esophageal peristalsis and motility are within normal limits. There is no evidence fo r hiatal hernia or esophagitis. The stomach has a normal size, shape and position. No gastric fillin g defects are seen. No gastric ulcer craters are seen. The duodenal bulb and sweep appear to be jacque ssly unremarkable without evidence for filling defect or ulcer crater. Small bowel follow through is performed with a normal transit time. The small bowel loops are of norm al caliber and demonstrate a normal mucosal fold pattern. The terminal ileum is unremarkable. IMPRESSION: Unremarkable upper GI evaluation with small bowel follow through.
== END | disposition home or self-care (01) ==
LOC: RADUSWWP 07:44
PROVIDERS: ATTEND Family Medicine
DX: R11.2 Nausea with vomiting, unspecified (principal)
CPT/HCPCS: 74240; 74248

== ENCOUNTER 2022-08-09 17:20 | Emergency (ER) | payer MEDICARE, BC, OTHER ==
[2022-08-09] MEDS ORDERED: KETOROLAC 15 MG/ML 1 ML VIAL IVP STA (18:57)
[2022-08-09] MEDS ORDERED: MORPHINE SULFATE 4 MG/ML SYRINGE IVP STA (19:03)
[2022-08-09] MEDS ORDERED: LIDOCAINE 5% PATCH TOPICAL STA (19:04)
--- NOTE | 2022-08-09 19:11 | ED ---
General Adult HPI - General Chief complaint: Back Pain/Injury Stated complaint: back pain Time Seen by Provider: 08/09/22 18:23 Source: patient, EMS, RN notes reviewed Mode of arrival: EMS Limitations: physical limitation - History of Present Illness Initial comments: 67-year-old male presents emergency department chief complaint of low back pain 3 hours. Patient's states that he was working on the yard when he lifted a bird bath and started experiencing pain in his right buttock going down his right leg. He has a history of chronic back pain and is scheduled for steroid injection on 08/17/22. He states that he has had pain like this but is usually stops at the knee. Now he reports that the pain extends down to his right foot. Denies loss of bowel or bladder function, urinary retention, fever, chills, saddle anesthesia. - Related Data Home Medications Medication Instructions Recorded Confirmed Sertraline HCl [Zoloft] 200 mg PO HS 03/29/15 06/09/20 Doxazosin [Cardura] 4 mg PO HS 01/27/18 06/09/20 Topiramate [Topamax] 50 mg PO HS 01/27/18 06/09/20 Levothyroxine Sodium [Synthroid] 100 mcg PO HS 10/30/18 06/09/20 Pantoprazole Sodium [Protonix] 40 mg PO HS 10/30/18 06/09/20 Butalb/Acetaminophen/Caffeine 1 cap PO DAILY PRN 05/21/20 06/09/20 [Fioricet 50-300-40 mg Capsule] Fluticasone Propionate 44 Mcg 1 puff INHALATION RT-DAILY PRN 05/21/20 06/09/20 [Flovent 44 Mcg Inhaler (Mhu)] Pramipexole [Mirapex] 1 mg PO HS 05/21/20 06/09/20 lisinopriL [Zestril] 10 mg PO HS 05/21/20 06/09/20 Previous Rx's Medication Instructions Recorded Ondansetron Odt [Zofran Odt] 4 mg PO Q8HR PRN #20 tab 05/21/20 Ondansetron Odt [Zofran Odt] 4 mg PO Q8HR PRN #24 tab 06/09/20 Allergies Allergy/AdvReac Type Severity Reaction Status Date / Time meperidine HCl [From Demerol] Allergy Rash/Hives Verified 08/09/22 17:28 silver sulfadiazine Allergy Itching, Verified 08/09/22 17:28 [From Silvadene] KIM SKIN Review of Systems ROS Statement: Those systems with pertinent positive or pertinent negative responses have been documented in the HPI. ROS Other: All systems not noted in ROS Statement are negative. Past Medical History Past Medical History: Asthma, GERD/Reflux, GI Bleed, Hypertension, Pulmonary Embolus (PE), Sleep Apnea/CPAP/BIPAP, Thyroid Disorder Additional Past Medical History / Comment(s): migraines, see Dr Cifuentes H&P, sleep apnea resolved with wt loss, diarrhea, diverticulitis, has been passing out History of Any Multi-Drug Resistant Organisms: C-DIFF Date of last positivie culture/infection: 04/19/2016 MDRO Source:: STOOL Past Surgical History: Back Surgery, Cholecystectomy, Hernia Repair, Orthopedic Surgery Additional Past Surgical History / Comment(s): RT HAND FB REMOVAL. CERVICAL SPINAL FUSION X3. SINUS RECONSTRUCTIVE SURGERY - rt shoulder rotator cuff Past Anesthesia/Blood Transfusion Reactions: Previous Problems w/ Anesthesia, Motion Sickness, Postoperative Nausea & Vomiting (PONV) Additional Past Anesthesia/Blood Transfusion Reaction / Comment(s): AWAKES W/ BEING UNABLE TO BREATHE; DRY HEAVES/vomiting SEVERE, NO RX HELPED. "He will pass out of vomits too much", BP dropped "way down" Past Psychological History: Anxiety Smoking Status: Never smoker Past Alcohol Use History: None Reported Past Drug Use History: None Reported - Past Family History Mother Family Medical History: No Reported History General Exam Limitations: no limitations General appearance: alert, in no apparent distress Head exam: Present: atraumatic, normocephalic, normal inspection Eye exam: Present: normal appearance, PERRL, EOMI. Absent: scleral icterus, conjunctival injection, periorbital swelling ENT exam: Present: normal exam, mucous membranes moist Neck exam: Present: normal inspection, full ROM. Absent: tenderness, meningismus, lymphadenopathy Respiratory exam: Present: normal lung sounds bilaterally. Absent: respiratory distress, wheezes, rales, rhonchi, stridor Cardiovascular Exam: Present: regular rate, normal rhythm, normal heart sounds. Absent: systolic murmur, diastolic murmur, rubs, gallop, clicks GI/Abdominal exam: Present: soft, normal bowel sounds. Absent: distended, tenderness, guarding, rebound, rigid Extremities exam: Present: tenderness (Tenderness over the right buttock extending down to the right foot), normal capillary refill, other (DP and PT pulses 2+, normal capillary refill less than 2 seconds). Absent: pedal edema, joint swelling, calf tenderness Back exam: Present: normal inspection Neurological exam: Present: alert, oriented X3, CN II-XII intact Psychiatric exam: Present: normal affect, normal mood Skin exam: Present: warm, dry, intact, normal color. Absent: rash Course Vital Signs 08/09/22 08/09/22 08/09/22 17:24 19:18 20:57 Temperature 98.2 F 98.5 F 97.8 F Pulse Rate 79 67 71 Respiratory 20 17 20 Rate Blood Pressure 163/11 156/93 184/97 O2 Sat by Pulse 96 97 96 Oximetry Medical Decision Making - Medical Decision Making Was pt. sent in by a medical professional or institution (, PA, VACUUM METALIZING SUPERVISOR, urgent care, hospital, or shelter...) When possible be specific @ -No Did you speak to anyone other than the patient for history (EMS, parent, family, police, friend...)? What history was obtained from this source @ -No Did you review nursing and triage notes (agree or disagree)? Why? @ -I reviewed and agree with nursing and triage notes Were old charts reviewed (outside hosp., previous admission, EMS record, old EKG, old radiological studies, urgent care reports/EKG's, shelter records)? Report findings @ -No old charts were reviewed Differential Diagnosis (chest pain, altered mental status, abdominal pain women, abdominal pain men, vaginal bleeding, weakness, fever, dyspnea, syncope, hea dache, dizziness, GI bleed, back pain, seizure, CVA, palpatations, mental health, musculoskeletal)? @ -Differential Musculoskeletal Muscular strain, contusion, ligament sprain, fracture, arthritis, septic arthritis, bursitis, cellulitis, muscle spasm, nerve compression, DVT, arterial occlusion, herpes zoster, electrolyte abnormality, tumor.... This is not meant to be in all inclusive list EKG interpreted by me (3pts min.). @ -None X-rays interpreted by me (1pt min.). @ -None done CT interpreted by me (1pt min.). @ -None done U/S interpreted by me (1pt. min.). @ -None done What testing was considered but not performed or refused? (CT, X-rays, U/S, labs)? Why? @ -None What meds were considered but not given or refused? Why? @ -None Did you discuss the management of the patient with other professionals (professionals i.e. Dr., PA, VACUUM METALIZING SUPERVISOR, lab, RT, psych nurse, social work msw, garage supervisor, teacher, ict help desk officer, case packer and sealer)? Give summary @ -No Was smoking cessation discussed for >3mins.? @ -No Was critical care preformed (if so, how long)? @ -No Were there social determinants of health that impacted care today? How? (Homelessness, low income, unemployed, alcoholism, drug addiction, transportation, low edu. Level, literacy, decrease access to med. care, residential, rehab)? @ -No Was there de-escalation of care discussed even if they declined (Discuss DNR or withdrawal of care, Hospice)? DNR status @ -No What co-morbidities impacted this encounter? (DM, HTN, Smoking, COPD, CAD, Cancer, CVA, ARF, Chemo, Hep., AIDS, mental health diagnosis, sleep apnea, morbid obesity)? @ -None Was patient admitted / discharged? Hospital course, mention meds given and route, prescriptions, significant lab abnormalities, going to OR and other pertinent info. @ -Discharged. Patient presented emergency department chief complaint of back pain. Patient has a history of chronic back pain and states that earlier today when he bent over and started experiencing worsening pain. He states the pain starts at his buttock and extends down his right leg. Denies loss of bowel or bladder function, urinary retention, saddle anesthesia, fever. Patient was given IV morphine and toradol which he reports improved his pain. Upon reevaluation patient is sitting up in bed and appears much more comfortable than when he first arrived. Patient evaluated by my attending, Dr. Corbett who agrees with assessment of patient. Patient advised to have strict return precautions including loss of bowel or bladder function, urinary retention, saddle anesthesia. Patient sent in stable condition Undiagnosed new problem with uncertain prognosis? @ -No Drug Therapy requiring intensive monitoring for toxicity (Heparin, Nitro, Insulin, Cardizem)? @ -No Were any procedures done? @ -No Diagnosis/symptom? @ -Low-back pain Acute, or Chronic, or Acute on Chronic? @ -Acute Uncomplicated (without systemic symptoms) or Complicated (systemic symptoms)? @ -uncomplicated Side effects of treatment? @ -No Exacerbation, Progression, or Severe Exacerbation? @ -No Poses a threat to life or bodily function? How? (Chest pain, [place], [place], pneumonia, PE, COPD, DKA, ARF, appy, cholecystitis, CVA, Diverticulitis, Homicidal, Suicidal, threat to staff... and all critical care pts) @ -No Disposition Clinical Impression: Mechanical back pain Disposition: HOME SELF-CARE Condition: Stable Instructions (If sedation given, give patient instructions): Acute Low Back Pain (ED) Additional Instructions: Please return to the emergency department for new or worsening symptoms. Is patient prescribed a controlled substance at d/c from ED?: No Referrals: Davy May DO [Primary Care Provider] - 1-2 days Time of Disposition: 20:55
[2022-08-09] MEDS ORDERED: MORPHINE SULFATE 2 MG/ML SYRINGE IVP ONE (20:39)
[2022-08-09 20:57] VITALS: BP 184/97; PULSE 71; RESP 20; TEMP 97.8
== END 2022-08-09 21:47 | disposition home or self-care (01) ==
LOC: EC 17:20
DX: M54.50 Low back pain, unspecified (principal); J45.909 Unspecified asthma, uncomplicated; K21.9 Gastro-esophageal reflux disease without esophagitis; I10 Essential (primary) hypertension; G47.30 Sleep apnea, unspecified; E07.9 Disorder of thyroid, unspecified; F41.9 Anxiety disorder, unspecified; Z79.890 Hormone replacement therapy; Z79.899 Other long term (current) drug therapy; Z88.5 Allergy status to narcotic agent; Z88.8 Allergy status to other drugs, medicaments and biological substances
CPT/HCPCS: 99284; 96374; 96375; 96376; J2270 ×2; J1885

== ENCOUNTER → 2023-04-11 | Day surgery (SDC) | payer MEDICARE, BC, OTHER ==
[~2023-04-11] MED LIST changes: +ATROPINE SULFATE 0.4 MG/ML 1 ML VIAL IM ONE; +LIDOCAINE 1% (10MG/ML) FOR IV START INTRADERMA PRN; +LIDOCAINE 1% INJ 10MG/ML (20 ML MDV) ONE; +MIDAZOLAM 2 MG/2 ML VIAL ONE; +ONDANSETRON 4 MG/2 ML VIAL ONE; +PHENYLEPHRINE 10 MG/ML VIAL ONE; +PROPOFOL 10 MG/ML 20 ML VIAL IV ONE; +SUCCINYLCHOLINE CHLORIDE 200 MG/10 ML VIAL IV ONE; +fentaNYL (PF) 50 MCG/ML 2 ML AMP ONE
[2023-04-11] MEDS: ONDANSETRON 4 MG/2 ML VIAL IVP ONE (12:30)
[2023-04-11] MEDS: LACTATED RINGERS 1,000 ML IV SCH (12:35)
[2023-04-11 13:08] VITALS: RESP 16
[2023-04-11 14:11] VITALS: TEMP 98
--- NOTE | 2023-04-11 14:38 | XR ---
EXAMINATION TYPE: XR chest 1V portable DATE OF EXAM: 04/11/2023 COMPARISON: NONE HISTORY: Post bronchoscopy. TECHNIQUE: Single frontal view of the chest is obtained. IMPRESSION: Platelike bands of opacity seen within the lungs bilaterally is likely atelectasis or scarring. A def initive pneumothorax is not seen. The cardiac silhouette and pulmonary vessels otherwise appear to be within normal limits.
[2023-04-11 14:41] VITALS: PULSE 79
[2023-04-11 15:12] VITALS: BP 146/92
--- NOTE | 2023-04-11 15:53 | FL ---
EXAMINATION TYPE: FL bronchoscopy DATE OF EXAM: 04/11/2023 FLUOROSCOPY Fluoroscopy time of 85.5 seconds was used during right-sided bronchoscopy. 0 image/s document/s the procedure. DAP 0.02430 Gycm2.
--- NOTE | 2023-04-11 20:13 | PCN ---
PROCEDURE NOTE PULMONARY/CRITICAL CARE PROCEDURE NOTE: PROCEDURES PERFORMED: Bronchoscopy, airway examination, therapeutic lavage, BAL right middle lobe, brushes, right lower lobe, transbronchial biopsies, right middle lobe, transbronchial biopsies right lower lobe. PREOPERATIVE DIAGNOSIS: Chronic cough/interstitial lung disease. POSTOPERATIVE DIAGNOSIS: Chronic cough/interstitial lung disease. The patient's procedure took place in [facility], room #1. There was informed consent and universal timeout. ANESTHESIA: Provided general endotracheal anesthesia, which is abbreviated GETA. ANESTHESIOLOGIST: Dr. Pino. The patient's procedure took place in room #1. There was informed consent, universal time-out. MACHINE HEDDLE CLEANER: Dr. Vasquez. HEALTHCARE MANAGEMENT CONSULTANT: First surgical manager was Christiane Alvarez. DESCRIPTION OF PROCEDURE: After the patient was adequately [id number] and on the effects of general anesthesia, the bronchoscope was inserted through the bronchoscope adapter connected to the endotracheal tube. Under fluoroscopic evaluation, we did brushes to the right lower lobe. After that, again, under fluoroscopic evaluation, we did multiple transbronchial biopsies, both to the right middle lobe, and right lower lobe. We probably had at least 4 or 5 biopsies in each lobe. Subsequent to that, we did a formal BAL into the right middle lobe. All the materials to be sent to the laboratory for analysis. There was minimal bleeding. We ensured hemostasis before the bronchoscope was withdrawn. The patient will be recovered. There was no immediate complication. There was no obvious pneumothorax on fluoroscopy. We will ask for chest x-ray afterwards. The patient tolerated the procedure well. I did explain the procedure and what was done, to the patient's . MMODL / IJN: [id number] /
== END ==
LOC: ORWHC2ENDO 12:04
PROVIDERS: ATTEND Internal Medicine Critical Care Medicine
DX: J84.9 Interstitial pulmonary disease, unspecified (principal); J98.4 Other disorders of lung; R05.3 Chronic cough; J45.909 Unspecified asthma, uncomplicated; N40.0 Benign prostatic hyperplasia without lower urinary tract symptoms; K21.9 Gastro-esophageal reflux disease without esophagitis; E78.5 Hyperlipidemia, unspecified; E03.9 Hypothyroidism, unspecified; E66.9 Obesity, unspecified; Z68.32 Body mass index [BMI] 32.0-32.9, adult; Z79.899 Other long term (current) drug therapy; Z79.890 Hormone replacement therapy; Z88.8 Allergy status to other drugs, medicaments and biological substances
CPT/HCPCS: 88104; 88108; 88305; 87070; 87205; 87116; 87102; 87206; 71045; 31628; 31632; 31623; 31624; J2250; J0330; J2405; J2001; J3010; J2704; J2371

== ENCOUNTER → 2023-04-16 | Outpatient (CLI) | payer MEDICARE, BC, OTHER ==
--- NOTE | 2023-04-16 08:48 | CT ---
EXAMINATION TYPE: High resolution CT chest wo con DATE OF EXAM: 04/16/2023 COMPARISON: Radiograph 04/11/2023. CT body 06/09/2020. HISTORY: 67-year-old male R05.3, cough TECHNIQUE: High resolution CT scanning of the chest utilizing 1 mm slice thickness and 1 cm gap or HR CT protocol. Both prone and supine imaging is utilized as well as expiratory scan. CT DLP: 1533.2mGycm. Automatic exposure control utilized for a dose reduction. FINDINGS: Heart upper limits of normal in size without pericardial effusion. Mild aneurysm ascending aorta 4.0 cm. Conventional arch also branching anatomy. Ectatic upper descend ing thoracic aorta at 3.5 cm. Mild aneurysm lower descending thoracic aorta 3.0 cm. Mildly dilated main right and left pulmonary arteries up to 2.8 cm suggesting underlying pulmonary ar terial hypertension. No thoracic lymphadenopathy by CT size criteria. There is focal consolidation and volume loss along the anterior basilar segment of the right lower lo be. Lesser degree of patchy infiltrate lateral segment right lower lobe. Some miniscule subpleural nodularity and reticular change at the left lower lobe measuring up to 3 mm . 6 mm, a nodule left base, series 9 and axial image 216. Calcified granuloma left lower lobe, axial image 188. No honeycombing, dominant groundglass changes, or bronchiectasis is seen. No thickening of the centra l bronchovascular bundles. No tree-in-bud opacities. Partially visualized infrarenal AAA measuring at least 4.2 cm and likely greater, only partially imag ed. IMPRESSION: 1. No honeycombing or other dominant findings of an interstitial pneumonitis at this time. Note large area of focal airspace disease at the right base suspicious for pneumonia. This should be followed t o clearance in order to exclude indolent neoplasm. 2. Minimal nonspecific subpleural scarring/fibrosis at the left base. An old calcified granuloma is a lso present at the left lower lobe. 3. 6 mm left lower lobe pulmonary nodule. CT in 6-12 months recommended per Fleischner guidelines. 4. Partially visualized infrarenal AAA measuring at least 4.2 cm. Measured up to only 3.2 cm on patie nt's old [address] Appropriate evaluation and follow-up recommended.
== END | disposition home or self-care (01) ==
LOC: RADCTMAIN 08:08
PROVIDERS: ATTEND Internal Medicine Critical Care Medicine
DX: I71.40 Abdominal aortic aneurysm, without rupture, unspecified (principal); J98.4 Other disorders of lung; J94.8 Other specified pleural conditions; R91.1 Solitary pulmonary nodule; R05.3 Chronic cough
CPT/HCPCS: 71250

== ENCOUNTER → 2023-07-04 | Outpatient (CLI) | payer MEDICARE, BC, OTHER ==
--- NOTE | 2023-07-04 16:41 | US ---
EXAMINATION TYPE: US scrotum with doppler. Grayscale and color Doppler Duplex imaging performed of cy cox scrotum. 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 There is no evidence of testicular torsion. Presence of hydroceles: No Presence of varicoceles: No Cystic area left epididymis measuring 0.6 x 0.5 x 0.7 cm consistent with a simple epididymal cyst. IMPRESSION: 1. No evidence of testicular mass or torsion. 2. Simple subcentimeter left epididymal cyst.
== END | disposition home or self-care (01) ==
LOC: RADUSWWP 15:52
PROVIDERS: ATTEND Family Medicine
DX: N50.3 Cyst of epididymis (principal); N50.89 Other specified disorders of the male genital organs
CPT/HCPCS: 76870; 93975

== ENCOUNTER 2024-06-12 06:51 | Day surgery (SDC) | payer MEDICARE, BC, OTHER ==
[2024-06-12] MEDS: SODIUM CHLORIDE 0.9% 1,000 ML IV SCH (07:15)
[2024-06-12] MEDS: IV FLUID CONTINUATION 1,000 ML IV ONE (07:16)
[2024-06-12 07:24] VITALS: BP 116/78; RESP 16; TEMP 97.7
[2024-06-12 09:29] VITALS: PULSE 62
--- NOTE | 2024-06-12 14:04 | P.EPPROC ---
- EP Procedure Note Electrophysiology Procedure Note: Diagnosis: syncope Twelve-lead EKG shows sinus rhythm normal RI narrow QRS normal ST segments normal QT interval Tilt table test per protocol Baseline blood pressure 122/82 mmHg, baseline heart rate 53 beats a minute Patient was tilted upright in angle of 70 degrees per protocol in about 24 to 26 minutes into the test he said he was really dizzy felt the room was spinning. At that time the heart rate was 64 beats a minute blood pressure was 120/75 Thereafter he appeared to have lost consciousness He was observed in this state of apparent loss of consciousness in the upright position for a few minutes His heart rate remained in the 50s and 60s and his blood pressure was completely normal He was laid supine the end of the procedure and he woke up Impression normal twelve-lead EKG Psychogenic syncope Normal heart rate and blood pressure response to upright tilting
== END 2024-06-12 09:46 | disposition home or self-care (01) ==
LOC: CATHEP 06:51
PROVIDERS: ATTEND Internal Medicine Clinical Cardiac Electrophysiology
DX: R55 Syncope and collapse (principal); E03.9 Hypothyroidism, unspecified; I10 Essential (primary) hypertension; Z79.890 Hormone replacement therapy; Z79.899 Other long term (current) drug therapy
CPT/HCPCS: 93660